=== PATIENT | female | born 1985 | race Caucasian/White ===

== ENCOUNTER 2016-09-24 17:49 | Emergency (ER) | payer BC ==
[~2016-09-24] VITALS: Ht 157.5 cm; Wt 55.5 kg
[~2016-09-24 17:49] MED LIST: BCPILLS PO; MISCCAP80 PO; PRENTAB26 PO
[2016-09-24 17:58] VITALS: TEMP 36.6; Ht 157.5 cm; Wt 55.5 kg
[2016-09-24] MEDS ORDERED: ONDANSETRON INJ 2 MG/ML 2 ML VIAL IV STA (18:34)
[2016-09-24] MEDS ORDERED: SODIUM CHLORIDE 0.9% 1000ML 1,000 ML IV STA (18:34)
[2016-09-24] MEDS ORDERED: HYDROmorphone INJ 1 MG/ML SYR IV STA (18:34)
[2016-09-24 19:04] LABS: BASO % 0.2 %; BASO ABS # 0.02 K/uL (0-0.2); COMPLETE YES; EOS % 0.8 %; HEMATOCRIT 45.2 % (37-47); IG% 0.2 %; LYMPH % 16.1 %; LYMPH ABS # 1.53 K/uL (1.2-3.4); MEAN CELL VOLUME 86.8 fL (80-100); MEAN CORPUSCULAR HEMOGLOBIN 30.7 pg (25-34); MEAN CORPUSCULAR HGB CONC 35.4 g/dl (32-36); MEAN PLATELET VOLUME 10.2 fL (7.4-10.4); MONO % 7.3 %; NEUT % 75.4 %; PLATELET COUNT 268 K/uL (130-400); RED BLOOD COUNT 5.21 M/uL (4.2-5.4); WHITE BLOOD COUNT 9.48 K/uL (4.8-10.8)
[2016-09-24 19:12] LABS: URINE APPEARANCE CLEAR (CLEAR); URINE BILIRUBIN NEG (NEG); URINE COLOR YELLOW; URINE EPITHELIAL CELL AUTO >30 /lpf (0-5); URINE NITRITE NEG (NEG); URINE PH >= 9.0 (4.5-7.5); URINE SPECIFIC GRAVITY 1.018 (1.000-1.030); UROBILINOGEN NEG (NEG)
[2016-09-24 19:14] LABS: MANUAL MICROSCOPIC REQUIRED? NO; REVIEW REQ? NO
[2016-09-24 19:23] LABS: ALT/SGPT 22 U/L (12-78); AST/SGOT 10 U/L (15-37); BLOOD UREA NITROGEN 10 mg/dl (7-18); BUN/CREATININE RATIO 13.3 (10-20); CALCIUM 9.7 mg/dl (8.5-10.1); CARBON DIOXIDE 27 mmol/L (21-32); CHLORIDE 108 mmol/L (98-107); CREATININE 0.77 mg/dl (0.60-1.20); GLUCOSE 89 mg/dl (70-99); SODIUM 143 mmol/L (136-145)
--- NOTE | 2016-09-24 19:31 | DIAGNOSTIC IMAGING REPORT ---
CT OF THE ABDOMEN AND PELVIS WITHOUT CONTRAST, STONE PROTOCOL CLINICAL HISTORY: Flank pain. Evaluate for stone. COMPARISON STUDY: CT of the abdomen and pelvis November 12, 2012 and renal ultrasound March 14, 2016. TECHNIQUE: Helical axial images of the abdomen and pelvis were obtained without IV or oral contrast according to renal stone protocol. FINDINGS: Lung bases are clear. Multiple right renal calculi measure up to 6 mm. There are several punctate left renal calculi. There is no hydronephrosis or hydroureter. There are no ureteral calculi. Evaluation of the remainder of the abdomen and pelvis is suboptimal on this unenhanced exam. The liver, spleen, adrenal glands and pancreas are normal. There is no evidence for a bowel obstruction. The appendix is normal. There are few prominent loops of fluid-filled small bowel within the right lower quadrant without transition point. There is no ascites. There is no lymphadenopathy or abscess. No suspicious skeletal lesions are identified. IMPRESSION: 1. Bilateral nephrolithiasis. No ureteral calculi or hydronephrosis. 2. Normal appendix. 3. No acute process within the abdomen or pelvis on unenhanced exam. A few prominent loops of small bowel within the right lower quadrant without convincing evidence for a small bowel obstruction. Electronically signed by: Lai Constantino M.D. 09/24/2016 7:30 PM Dictated Date/Time: 09/24/2016 7:21 PM
[2016-09-24 19:33] LABS: ALKALINE PHOSPHATASE 117 U/L (45-117)
[2016-09-24] MEDS ORDERED: OXYCODONE IR HOME PACK PO ONE (20:00)
[2016-09-24 20:17] VITALS: BP 119/81; PULSE 72; O2SAT 98
--- NOTE | 2016-09-25 01:00 | EMERGENCY ROOM VISIT NOTE ---
History Report prepared by Roxanne: David Catalan Under the Supervision of: Dr. Armand Morales M.D. First contact with patient: 18:23 Chief Complaint: ABDOMINAL PAIN Stated Complaint: COLD CHILLS, INTENSE STOMACH PAIN Nursing Triage Summary: abd pain and cramping. "Worse than labor contractions, no relief" Diarrhea. History od kidney stones. Denies urinary trouble. Nausea, no vomiting. History of Present Illness The patient is a 30 year old female who presents to the Emergency Room with complaints of constant, sharp, lower abdominal pain beginning this morning. She currently rates her discomfort an 8/10 in severity. The patient states that her pain began this morning when she was using the restroom. She reports that it radiates to her sides, but not her back. The patient notes that it feels like she is having labor contractions that do not stop. She states that she has had diarrhea and chills. The patient denies fever, vomiting, urinary symptoms, vaginal discharge, vaginal bleeding, blood in her urine or stool or melena. She reports that she has a history of kidney stones. The patient notes that she passed a kidney stone a year ago, and her pain was a lot lower. She states that her PCP thought it was a UTI. Source of History: patient Onset: this morning Position: abdomen (lower) Symptom Intensity: 8/10 Quality: sharp Timing: constant Modifying Factors (Relieving): other (none) Associated Symptoms: + chills, + diarrhea, No fevers, No vomiting, No urinary symptoms Review of Systems See HPI for pertinent positives & negatives. A total of 10 systems reviewed and were otherwise negative. Past Medical & Surgical Medical Problems: (1) No Known Active Medical Problems (2) Post-dates Family History Patient reports no known family medical history. Social History Smoking Status: Never Smoker Drug Use: none Marital Status: Housing Status: lives with family Occupation Status: employed Current/Historical Medications No Active Prescriptions or Reported Meds Allergies Coded Allergies: No Known Allergies (Unverified , 09/24/16) Physical Exam Vital Signs Date Time Temp Pulse Resp B/P (MAP) Pulse Ox O2 Delivery O2 Flow Rate FiO2 09/24/16 20:17 72 18 119/81 98 09/24/16 17:58 36.6 97 19 133/86 97 Room Air Physical Exam Constitutional: Vital signs reviewed. Crying and in significant pain Eyes: Pupils are equal round reactive to light. Conjunctiva are noninjected. ENT: Pharynx is clear without erythema or exudate. Mucous membranes are moist. Neck supple without meningeal signs. Respiratory: Clear to auscultation bilaterally. Breath sounds are equal bilaterally. Cardiovascular: Regular rate and rhythm. No rubs or gallops. GI: Soft, nondistended and nontender. Bowel sounds are present. Musculoskeletal: No peripheral edema. No lower extremity tenderness. No CVA tenderness. Integumentary: No cyanosis. Neurological: The patient is awake and alert. No focal deficits. Psychiatric: Anxious. Tearful. Medical Decision & Procedures ER Provider Diagnostic Interpretation: CT results as stated below per my review and radiologist interpretation. CT OF THE ABDOMEN AND PELVIS WITHOUT CONTRAST, STONE PROTOCOL CLINICAL HISTORY: Flank pain. Evaluate for stone. COMPARISON STUDY: CT of the abdomen and pelvis November 12, 2012 and renal ultrasound March 14, 2016. TECHNIQUE: Helical axial images of the abdomen and pelvis were obtained without IV or oral contrast according to renal stone protocol. FINDINGS: Lung bases are clear. Multiple right renal calculi measure up to 6 mm. There are several punctate left renal calculi. There is no hydronephrosis or hydroureter. There are no ureteral calculi. Evaluation of the remainder of the abdomen and pelvis is suboptimal on this unenhanced exam. The liver, spleen, adrenal glands and pancreas are normal. There is no evidence for a bowel obstruction. The appendix is normal. There are few prominent loops of fluid-filled small bowel within the right lower quadrant without transition point. There is no ascites. There is no lymphadenopathy or abscess. No suspicious skeletal lesions are identified. IMPRESSION: 1. Bilateral nephrolithiasis. No ureteral calculi or hydronephrosis. 2. Normal appendix. 3. No acute process within the abdomen or pelvis on unenhanced exam. A few prominent loops of small bowel within the right lower quadrant without convincing evidence for a small bowel obstruction. Electronically signed by: Lai Constantino M.D. 09/24/2016 7:30 PM Dictated Date/Time: 09/24/2016 7:21 PM Laboratory Results 09/24/16 18:55 Red Blood Count 5.21, Mean Corpuscular Volume 86.8, Mean Corpuscular Hemoglobin 30.7, Mean Corpuscular Hemoglobin Concent 35.4, Mean Platelet Volume 10.2, Neutrophils (%) (Auto) 75.4, Lymphocytes (%) (Auto) 16.1, Monocytes (%) (Auto) 7.3, Eosinophils (%) (Auto) 0.8, Basophils (%) (Auto) 0.2, Neutrophils # (Auto) 7.14, Lymphocytes # (Auto) 1.53, Monocytes # (Auto) 0.69, Eosinophils # (Auto) 0.08, Basophils # (Auto) 0.02 09/24/16 18:55 Test 09/24/16 18:55 White Blood Count 9.48 K/uL (4.8-10.8) Red Blood Count 5.21 M/uL (4.2-5.4) Hemoglobin 16.0 g/dL (12.0-16.0) Hematocrit 45.2 % (37-47) Mean Corpuscular Volume 86.8 fL (80-100) Mean Corpuscular Hemoglobin 30.7 pg (25-34) Mean Corpuscular Hemoglobin Concent 35.4 g/dl (32-36) Platelet Count 268 K/uL (130-400) Mean Platelet Volume 10.2 fL (7.4-10.4) Neutrophils (%) (Auto) 75.4 % Lymphocytes (%) (Auto) 16.1 % Monocytes (%) (Auto) 7.3 % Eosinophils (%) (Auto) 0.8 % Basophils (%) (Auto) 0.2 % Neutrophils # (Auto) 7.14 K/uL (1.4-6.5) Lymphocytes # (Auto) 1.53 K/uL (1.2-3.4) Monocytes # (Auto) 0.69 K/uL (0.11-0.59) Eosinophils # (Auto) 0.08 K/uL (0-0.5) Basophils # (Auto) 0.02 K/uL (0-0.2) RDW Standard Deviation 40.7 fL (36.4-46.3) RDW Coefficient of Variation 12.8 % (11.5-14.5) Immature Granulocyte % (Auto) 0.2 % Immature Granulocyte # (Auto) 0.02 K/uL (0.00-0.02) Urine Color YELLOW Urine Appearance CLEAR (CLEAR) Urine pH >= 9.0 (4.5-7.5) Urine Specific [place] 1.018 (1.000-1.030) Urine Protein NEG (NEG) Urine Glucose (UA) NEG (NEG) Urine Ketones NEG (NEG) Urine Occult Blood TRACE (NEG) Urine Nitrite NEG (NEG) Urine Bilirubin NEG (NEG) Urine Urobilinogen NEG (NEG) Urine Leukocyte Esterase NEG (NEG) Urine WBC (Auto) 1-5 /hpf (0-5) Urine RBC (Auto) 5-10 /hpf (0-4) Urine Hyaline Casts (Auto) 1-5 /lpf (0-5) Urine Epithelial Cells (Auto) >30 /lpf (0-5) Urine Bacteria (Auto) NEG (NEG) Urine Test NEG (NEG) Anion Gap 8.0 mmol/L (3-11) Est Creatinine Clear Calc Drug Dose 83.0 ml/min Estimated GFR () 118.4 Estimated GFR (Non- 102.2 BUN/Creatinine Ratio 13.3 (10-20) Calcium Level 9.7 mg/dl (8.5-10.1) Total Bilirubin 0.3 mg/dl (0.2-1) Direct Bilirubin < 0.1 mg/dl (0-0.2) Aspartate Amino Transf (AST/SGOT) 10 U/L (15-37) Alanine Aminotransferase (ALT/SGPT) 22 U/L (12-78) Alkaline Phosphatase 117 U/L (45-117) Total Protein 8.5 gm/dl (6.4-8.2) Albumin 4.4 gm/dl (3.4-5.0) Lipase 169 U/L (73-393) Laboratory results as reviewed by me. Medications Administered Medications (Trade) Dose Ordered Sig/Franchesca Route Start Time Stop Time Status Last Admin Dose Admin Ondansetron HCl (Zofran Inj) 4 mg NOW STAT IV 09/24/16 18:34 09/24/16 18:37 DC 09/24/16 18:51 4 MG Hydromorphone HCl (Dilaudid Inj) 0.5 mg NOW STAT IV 09/24/16 18:34 09/24/16 18:37 DC 09/24/16 18:51 0.5 MG Sodium Chloride 1,000 ml @ 999 mls/hr Q1H1M STAT IV 09/24/16 18:34 09/24/16 19:34 DC 09/24/16 18:51 999 MLS/HR Oxycodone HCl (Roxicodone Immediate Rel 5MG Home Pack) 1 homepack UD ONCE PO 09/24/16 20:00 09/24/16 20:01 DC 09/24/16 20:13 1 HOMEPACK ED Course 1830: The patient was evaluated in room C11A. A complete history and physical exam was performed. 1833: Ordered Sodium Chloride 1000 ml @ 999 mls/hr IV, Dilaudid Inj 0.5mg IV, Zofran Inj 4mg IV. 1945: Upon reevaluation, the patient appeared to have improvement of her symptoms. I discussed tonight's findings with her. She verbalized agreement of the treatment plan. She will follow up with her PCP and will not breast feed while on medication. The patient will be discharged home when she receives her medication. 1999: Ordered Oxycodone HCl 1 homepack PO Medical Decision This is a 30-year-old female presents with abdominal pain. Differential diagnosis includes renal colic, obstructive uropathy, UTI, pancreatitis, cholecystitis, bowel obstruction, colitis. I did perform a limited focused review of portions of the patient's old chart on the electronic medical record. The patient had a CT scan in 2012 which showed a bilateral kidney stone. Medication Reconciliation: I attest that I have personally reviewed the patient' s current medication list. Blood Pressure Screening: Patient was found to have a slightly elevated blood pressure due to circumstances. I do not believe that the patient requires hypertension monitoring. I did evaluate the patient as noted above. The patient is presenting with significant abdominal pain. She has a history of kidney stones. IV access was established. I did treat her with IV Dilaudid and Zofran. She was also given normal saline IV. I did order and personally review the patient's urine analysis as described above. Urine test is negative. I did order and review the patient's blood work as noted in the electronic medical record. Her white blood cell count is not elevated. LFTs and electrolytes are unremarkable. I did order a CT of the abdomen and pelvis. I did review the images myself as well as the radiology report as described above. She has no evidence of ureterolithiasis. She does have nephrolithiasis. It seems possible that she may have passed a stone given her hematuria and prior history of kidney stones. She does have some dilated small bowel loops which is likely secondary to enteritis given her diarrhea. I did discuss the test results with the patient. She is feeling better at this time. She was given a home pack of oxycodone for any persistent pain. She was advised follow up very closely with her doctor for further evaluation. She was advised not to breast feed for 24 hours after using any narcotic pain meds. She was given return instructions as outlined below and discharged in good condition. Impression Primary Impression: Abdominal pain, acute, generalized Additional Impressions: Enteritis Nephrolithiasis Scribe Attestation The scribe's documentation has been prepared under my direct and personally reviewed by me in its entirety. I confirm that the note above accurately reflects all work, treatment, procedures, and medical decision making performed by me. Departure Information Dispostion Home / Self-Care Prescriptions No Active Prescriptions or Reported Meds Referrals Marj Fiore M.D. Forms Call Back Authorization, HOME CARE DOCUMENTATION FORM, IMPORTANT VISIT INFORMATION Patient Instructions Abdominal Pain - [facility], [facility] Additional Instructions You have been examined and treated today on an emergency basis only. This is not a substitute for, or an effort to provide, complete comprehensive medical care. It is impossible to recognize and treat all injuries or illnesses in a single emergency department visit. It is therefore important that you follow up closely with your physician. Call as soon as possible for an appointment. Return for worsening symptoms or if you develop fever, vomiting, or any other concerning symptoms. Problem Qualifiers
[2016-09-26] MEDS ORDERED: MRLP17X PO (14:02)
== END 2016-09-24 20:17 | disposition home or self-care (01) ==
LOC: C.EDB 17:51 → C.EDC 20:17
DX: R10.0 Acute abdomen (principal); K52.9 Noninfective gastroenteritis and colitis, unspecified; N20.0 Calculus of kidney

== ENCOUNTER 2016-09-25 08:19 | Observation (INO) | payer BC ==
[~2016-09-25] VITALS: Ht 157.5 cm; Wt 56.7 kg
[2016-09-25] MEDS ORDERED: ONDANSETRON INJ 2 MG/ML 2 ML VIAL IV STA (08:46)
[2016-09-25] MEDS ORDERED: SODIUM CHLORIDE 0.9% 1000ML 1,000 ML IV STA (08:46)
[2016-09-25] MEDS ORDERED: MoRPHine SULFATE 4 MG/ML 1 ML CARP\\VIAL IV STA (08:46)
[2016-09-25 08:57] LABS: URINE APPEARANCE CLEAR (CLEAR); URINE BILIRUBIN NEG (NEG); URINE COLOR YELLOW; URINE NITRITE NEG (NEG); URINE SPECIFIC GRAVITY 1.004 (1.000-1.030); UROBILINOGEN NEG (NEG); ZZUR CULT IF INDIC CLEAN CATCH NO
--- NOTE | 2016-09-25 09:00 | EMERGENCY ROOM VISIT NOTE ---
History First contact with patient: 08:31 Chief Complaint: DEHYDRATION Stated Complaint: COLD CHILLS,BACK/SHOULDER/ABD. PAIN, DEHYDRATED Nursing Triage Summary: triage note: pt reports she was seen in ed yesterday for same. pt reports "i feel like i have to poop but i can't and i am having pain on the right side of my back." pt reports "i have a cluster of kidney stones they say." History of Present Illness The patient is a 30 year old female who presents to the Emergency Room with complaints of abdominal pain. The patient states that she has had diffuse and more severe upper abdominal pain. She states that she had diarrhea yesterday but today feels as though she needs to have a bowel movement but she cannot. She was seen in the emergency department yesterday for similar symptoms. She had a noncontrasted CT scan. The patient states that the pain has worsened. The pain is in the upper abdomen and radiates to the right shoulder. She rates her discomfort a 6/10. She reports nausea. She denies any fevers. She denies any vomiting. She denies any hematemesis, hematochezia or melena. She denies any urinary symptoms. She denies any vaginal bleeding or discharge. The patient has had a in the past. She had a vaginal delivery approximately 11 months ago and she is currently breast-feeding. She also went kayaking approximately 1.5 weeks ago. Review of Systems A 10 system review of systems was completed with positives and pertinent negatives listed in the HPI. Past Medical/Surgical History Medical Problems: (1) No Known Active Medical Problems (2) Post-dates Family History Patient reports no known family medical history. Social History Smoking Status: Never Smoker Drug Use: none Marital Status: Housing Status: lives with family Occupation Status: employed Current/Historical Medications No Active Prescriptions or Reported Meds Allergies Coded Allergies: No Known Allergies (Unverified , 09/25/16) Physical Exam Vital Signs Date Time Temp Pulse Resp B/P (MAP) Pulse Ox O2 Delivery O2 Flow Rate FiO2 09/25/16 13:24 75 09/25/16 12:55 69 18 109/79 100 Room Air 09/25/16 10:08 78 19 122/78 98 09/25/16 08:21 36.8 98 20 141/99 98 Room Air Physical Exam VITALS: Vitals are noted on the nurse's note and reviewed by myself. Vital signs stable. The patient is afebrile. GENERAL: This is a 30-year-old female, in no acute distress, nondiaphoretic, well-developed well-nourished. SKIN: The skin was without rashes, erythema, edema, or bruising. There is no tenting of the skin. Capillary reflex less than 2 seconds. HEAD: Normocephalic atraumatic. EARS: The external ears are normal in appearance. EYES: Pupils equal round and reactive to light and accommodation. Conjunctivae without injection, sclerae without icterus. Extraocular movements intact. NOSE: Patent, turbinates without inflammation or discharge. MOUTH: Mucous membranes moist. Tonsils are not enlarged. Pharynx without erythema or exudate. Uvula midline. Airway patent. Tongue does not deviate. NECK: Supple without nuchal rigidity. No lymphadenopathy. No thyromegaly. Cervical spine is nontender. No JVD. HEART: Regular rate and rhythm without murmurs gallops or rubs. LUNGS: Clear to auscultation bilaterally without wheezes, rales or rhonchi. No retractions or accessory muscle use. ABDOMEN: Positive bowel sounds x 4, hyperactive. Soft, moderate diffuse tenderness, without masses or organomegaly. Yoon sign negative. MUSCULOSKELETAL: No muscle atrophy, erythema, or edema noted. Full range of motion in all extremities. Normal gait. Strength 5/5 throughout. NEURO: Patient was alert and oriented to person place and time. No focal neurological deficits. Medical Decision & Procedures ER Provider Diagnostic Interpretation: [~ rep ct add3]] BILIARY ULTRASOUND CLINICAL HISTORY: Right upper quadrant abdominal pain COMPARISON STUDY: No previous studies for comparison. FINDINGS: The liver appears sonographically normal. The gallbladder appears sonographically normal. The pancreas appears sonographically normal. There is no ductal dilatation. The common bile duct measures 3 mm. There is no right-sided hydronephrosis. There are 2 small echogenic foci within the right kidney, likely representing calculi. IMPRESSION: 1. Ultrasonographically normal liver, pancreas, and gallbladder 2. No ductal dilatation 3. Right-sided nephrolithiasis CHEST ONE VIEW PORTABLE CLINICAL HISTORY: abdominal pain pain COMPARISON STUDY: 03/14/2016 FINDINGS: The bones soft tissues and hemidiaphragms are normal. The cardiomediastinal silhouette is normal. The lungs are clear. The pulmonary vasculature is normal. IMPRESSION: Negative chest. KUB CLINICAL HISTORY: abdominal pain COMPARISON STUDY: CT scan dated 09/24/2016 FINDINGS: There are minimally dilated left mid abdominal small bowel loops measuring up to 3.4 cm in diameter. There is scattered stool within the colon. The renal shadows are partially secured by overlying bowel gas and fecal material. There is a 4 mm upper pole right renal calcification consistent with a calculus. IMPRESSION: 1. Right-sided nephrolithiasis 2. Minimally dilated left upper quadrant small bowel loops Laboratory Results 09/25/16 08:50 Red Blood Count 4.80, Mean Corpuscular Volume 86.7, Mean Corpuscular Hemoglobin 29.0, Mean Corpuscular Hemoglobin Concent 33.4, Mean Platelet Volume 9.7, Neutrophils (%) (Auto) 67.3, Lymphocytes (%) (Auto) 21.0, Monocytes (%) (Auto) 10.2, Eosinophils (%) (Auto) 0.9, Basophils (%) (Auto) 0.4, Neutrophils # (Auto ) 3.82, Lymphocytes # (Auto) 1.19, Monocytes # (Auto) 0.58, Eosinophils # (Auto ) 0.05, Basophils # (Auto) 0.02 09/25/16 08:50 Test 09/25/16 08:30 09/25/16 08:50 09/25/16 09:00 Urine Color YELLOW Urine Appearance CLEAR (CLEAR) Urine pH 8.0 (4.5-7.5) Urine Specific [place] 1.004 (1.000-1.030) Urine Protein NEG (NEG) Urine Glucose (UA) NEG (NEG) Urine Ketones NEG (NEG) Urine Occult Blood NEG (NEG) Urine Nitrite NEG (NEG) Urine Bilirubin NEG (NEG) Urine Urobilinogen NEG (NEG) Urine Leukocyte Esterase NEG (NEG) Urine Test NEG (NEG) White Blood Count 5.67 K/uL (4.8-10.8) Red Blood Count 4.80 M/uL (4.2-5.4) Hemoglobin 13.9 g/dL (12.0-16.0) Hematocrit 41.6 % (37-47) Mean Corpuscular Volume 86.7 fL (80-100) Mean Corpuscular Hemoglobin 29.0 pg (25-34) Mean Corpuscular Hemoglobin Concent 33.4 g/dl (32-36) Platelet Count 222 K/uL (130-400) Mean Platelet Volume 9.7 fL (7.4-10.4) Neutrophils (%) (Auto) 67.3 % Lymphocytes (%) (Auto) 21.0 % Monocytes (%) (Auto) 10.2 % Eosinophils (%) (Auto) 0.9 % Basophils (%) (Auto) 0.4 % Neutrophils # (Auto) 3.82 K/uL (1.4-6.5) Lymphocytes # (Auto) 1.19 K/uL (1.2-3.4) Monocytes # (Auto) 0.58 K/uL (0.11-0.59) Eosinophils # (Auto) 0.05 K/uL (0-0.5) Basophils # (Auto) 0.02 K/uL (0-0.2) RDW Standard Deviation 40.7 fL (36.4-46.3) RDW Coefficient of Variation 12.7 % (11.5-14.5) Immature Granulocyte % (Auto) 0.2 % Immature Granulocyte # (Auto) 0.01 K/uL (0.00-0.02) Anion Gap 10.0 mmol/L (3-11) Est Creatinine Clear Calc Drug Dose 95.4 ml/min Estimated GFR () 134.8 Estimated GFR (Non- 116.3 BUN/Creatinine Ratio 9.3 (10-20) Calcium Level 8.6 mg/dl (8.5-10.1) Total Bilirubin 0.5 mg/dl (0.2-1) Aspartate Amino Transf (AST/SGOT) 11 U/L (15-37) Alanine Aminotransferase (ALT/SGPT) 18 U/L (12-78) Alkaline Phosphatase 95 U/L (45-117) Total Protein 7.2 gm/dl (6.4-8.2) Albumin 3.8 gm/dl (3.4-5.0) Globulin 3.4 gm/dl (2.5-4.0) Albumin/Globulin Ratio 1.1 (0.9-2) Lipase 131 U/L (73-393) Lactic Acid Level 1.2 mmol/L (0.4-2.0) Medications Administered Medications (Trade) Dose Ordered Sig/Franchesca Route Start Time Stop Time Status Last Admin Dose Admin Morphine Sulfate (MoRPHine SULFATE INJ) 4 mg NOW STAT IV 09/25/16 08:46 09/25/16 08:48 DC 09/25/16 08:46 4 MG Ondansetron HCl (Zofran Inj) 4 mg NOW STAT IV 09/25/16 08:46 09/25/16 08:48 DC 09/25/16 08:46 4 MG Sodium Chloride 1,000 ml @ 999 mls/hr Q1H1M STAT IV 09/25/16 08:46 09/25/16 09:46 DC 09/25/16 08:46 999 MLS/HR Miscellaneous (Soap Suds Enema) 1 ea ONE STAT MT 09/25/16 11:04 09/25/16 11:06 DC 09/25/16 11:04 1 EA Morphine Sulfate (MoRPHine SULFATE INJ) 2 mg NOW STAT IV 09/25/16 13:01 09/25/16 13:02 DC 09/25/16 13:01 2 MG ED Course The patient was seen and examined. Previous visits were reviewed. The patient does not have a fever or leukocytosis. She does not have any significant electrolyte abnormality. Lactic acid was not elevated. Lipase was not elevated. Urinalysis is negative for hematuria, ketones or urinary tract infection. Urine test was negative. Ultrasound of the gallbladder was negative Chest x-ray was negative for free air or acute abnormality KUB was negative for obstruction. There is a moderate amount of stool in the right colon. There are dilated loops of bowel in the left upper quadrant. The patient was hydrated with normal saline She was initially given 4 mg IV morphine and 4 mg IV Zofran She was given a soapsuds enema with only minimal return She was given additional 2 mg IV morphine The patient presents to the emergency department with intractable abdominal pain. She was seen here yesterday and had a negative noncontrasted CT. Her pain has persisted and even worsened with radiation to the right shoulder. Gallbladder ultrasound was negative. X-rays did not reveal any obvious abnormality. The patient does have increased fecal load particularly on the right abdomen. A soapsuds enema did not produce results and did not alleviate her pain. The patient had diarrhea yesterday but the diarrhea has stopped. This could potentially represent an infectious colitis or diarrhea. Could be inflammatory in nature. I discussed repeating a CT scan of the abdomen and pelvis with IV and oral contrast. I did discuss the risks, benefits and alternatives. The patient and her would like to defer a CT at this time. Despite the above treatment, the patient complains of persistent and severe discomfort. She is concerned that the pain would return and she would come back to the emergency department. I discussed the case with the [facility] service and they will evaluate the patient. The case was discussed with Dr. Villatoro who agrees with the assessment and treatment plan. Medical Decision DIFFERENTIAL DIAGNOSIS: Hepatitis, cholecystitis, cholangitis, biliary colic, pancreatitis, pneumonia, subdiaphragmatic abscess, appendicitis, inguinal hernia , nephrolithiasis, inflammatory bowel disease, mesenteric adenitis, peptic ulcer disease, GERD, gastritis, pancreatitis, myocardial infarction, pericarditis, ruptured aortic aneurysm, appendicitis, gastroenteritis, bowel obstruction, splenic infarct, diverticulitis, mesenteric ischemia, metabolic, peritonitis, among others. Impression Primary Impression: Intractable abdominal pain Additional Impression: Nausea Departure Information Dispostion Admitted as an inpatient Condition GOOD Prescriptions No Active Prescriptions or Reported Meds Referrals Yojana Rehman MD (PCP) Patient Instructions My [facility] [address] Problem Qualifiers
--- NOTE | 2016-09-25 09:02 | DIAGNOSTIC IMAGING REPORT ---
CHEST ONE VIEW PORTABLE CLINICAL HISTORY: abdominal pain pain COMPARISON STUDY: 03/14/2016 FINDINGS: The bones soft tissues and hemidiaphragms are normal. The cardiomediastinal silhouette is normal. The lungs are clear. The pulmonary vasculature is normal. IMPRESSION: Negative chest. Electronically signed by: Con Flores M.D. 09/25/2016 9:01 AM Dictated Date/Time: 09/25/2016 9:01 AM
[2016-09-25 09:03] LABS: MANUAL MICROSCOPIC REQUIRED? NO; REVIEW REQ? NO
[2016-09-25 09:09] LABS: BASO % 0.4 %; BASO ABS # 0.02 K/uL (0-0.2); COMPLETE YES; EOS % 0.9 %; HEMATOCRIT 41.6 % (37-47); IG% 0.2 %; LYMPH ABS # 1.19 K/uL (1.2-3.4); MEAN CELL VOLUME 86.7 fL (80-100); MEAN CORPUSCULAR HGB CONC 33.4 g/dl (32-36); MEAN PLATELET VOLUME 9.7 fL (7.4-10.4); MONO % 10.2 %; NEUT % 67.3 %; PLATELET COUNT 222 K/uL (130-400); WHITE BLOOD COUNT 5.67 K/uL (4.8-10.8)
[2016-09-25 09:28] LABS: BUN/CREATININE RATIO 9.3 (10-20); CREATININE 0.67 mg/dl (0.60-1.20); POTASSIUM 3.7 mmol/L (3.5-5.1)
[2016-09-25 09:30] LABS: ALB/GLOB RATIO 1.1 (0.9-2)
[2016-09-25 09:37] LABS: CALCIUM 8.6 mg/dl (8.5-10.1)
--- NOTE | 2016-09-25 09:58 | DIAGNOSTIC IMAGING REPORT ---
BILIARY ULTRASOUND CLINICAL HISTORY: Right upper quadrant abdominal pain COMPARISON STUDY: No previous studies for comparison. FINDINGS: The liver appears sonographically normal. The gallbladder appears sonographically normal. The pancreas appears sonographically normal. There is no ductal dilatation. The common bile duct measures 3 mm. There is no right-sided hydronephrosis. There are 2 small echogenic foci within the right kidney, likely representing calculi. IMPRESSION: 1. Ultrasonographically normal liver, pancreas, and gallbladder 2. No ductal dilatation 3. Right-sided nephrolithiasis Electronically signed by: Jose G Singh M.D. 09/25/2016 9:57 AM Dictated Date/Time: 09/25/2016 9:55 AM
--- NOTE | 2016-09-25 10:38 | DIAGNOSTIC IMAGING REPORT ---
KUB CLINICAL HISTORY: abdominal pain COMPARISON STUDY: CT scan dated 09/24/2016 FINDINGS: There are minimally dilated left mid abdominal small bowel loops measuring up to 3.4 cm in diameter. There is scattered stool within the colon. The renal shadows are partially secured by overlying bowel gas and fecal material. There is a 4 mm upper pole right renal calcification consistent with a calculus. IMPRESSION: 1. Right-sided nephrolithiasis 2. Minimally dilated left upper quadrant small bowel loops Electronically signed by: Jose G Singh M.D. 09/25/2016 10:37 AM Dictated Date/Time: 09/25/2016 10:35 AM
[2016-09-25] MEDS ORDERED: SOAP SUDS ENEMA PR STA (11:04)
[2016-09-25] MEDS ORDERED: MoRPHine SULFATE 2 MG/ML CARP IV STA (13:01)
--- NOTE | 2016-09-25 13:44 | History and Physical ---
History & Physical Date & Time of Service: Sep 25, 2016 at 13:44 Chief Complaint: abdominal pain, nausea, chills . Primary Care Physician: History of Present Illness Source: patient, family, clinic records, hospital records 30-year-old female followed by Dr. Marj Fiore. History of nephrolithiasis, status post lithotripsy stents. Otherwise, she enjoys good health. Early yesterday morning she developed abdominal pain. Pain described as lower abdominal pain that radiated to her back. The pain was intense and constant. She noted some nausea and loose stools. No dysuria or hematuria. Experienced chills, no fever. Came to the ED for evaluation. UA showed microscopic hematuria. CT of abdomen and pelvis showed bilateral physis, but no ureteral stones and no apparent acute intra-abdominal pathology. Patient received IV fluids, hydromorphone, and ondansetron with improvement of her symptoms. She was discharged to home. She returned to the ED this afternoon around 1:30 because of persistent abdominal pain, more diffuse than yesterday. Persistent nausea, no vomiting. Still experiencing some fecal urgency and loose stools. No melena or hematochezia prior to ED visit, but she had mild rectal bleeding after enema was administered. No dysuria or gross hematuria. Received IV fluids, ondansetron, morphine with some relief, but still uncomfortable and unable to return home. Youngest child is 11 months old and still breast-feeding. Urine test in ED negative. . Past Medical/Surgical History Medical Problems: (1) Nephrolithiasis Status: Chronic Surgical Problems: (1) Status post delivery Status: Chronic . Family History Mother- DM, heart disease, hypertension, aortic valve replacement. Father- diabetes . Social History Smoking Status: Never Smoker Alcohol Use: none Drug Use: none Marital Status: Housing status: lives with significant other Occupational Status: employed Immunizations History of Influenza Vaccine: N/A History of Tetanus Vaccine?: Yes History of Pneumococcal: No History of Hepatitis B Vaccine: Yes Allergies Coded Allergies: No Known Allergies (Unverified , 09/25/16) Home Medications No Active Prescriptions or Reported Meds Review of Systems As noted above. . Physical Exam Vital Signs Date Time Temp Pulse Resp B/P (MAP) Pulse Ox O2 Delivery O2 Flow Rate FiO2 09/25/16 13:24 75 09/25/16 12:55 69 18 109/79 100 Room Air 09/25/16 10:08 78 19 122/78 98 09/25/16 08:21 36.8 98 20 141/99 98 Room Air General Appearance: + mild distress Head: normocephalic, atraumatic Eyes: normal inspection, PERRL, EOMI, sclerae normal ENT: normal ENT inspection, hearing grossly normal Neck: supple, no adenopathy, thyroid normal, no JVD Respiratory/Chest: lungs clear, normal breath sounds, no respiratory distress, no accessory muscle use Cardiovascular: regular rate, rhythm, no edema, no murmur Abdomen/GI: + pertinent finding (slightly distended, hyperactive bowel sounds, soft, diffuse moderate tenderness without rebound, no palpable masses or organomegaly) Extremities/Musculoskelatal: normal inspection, no calf tenderness Neurologic/Psych: oriented x 3 Skin: normal color, warm/dry, no rash Lymphatic: no adenopathy (cervical) Diagnostics Laboratory Results Results Past 24 Hours Test 09/25/16 08:30 09/25/16 08:50 09/25/16 09:00 Range/Units Urine Color YELLOW Urine Appearance CLEAR CLEAR Urine pH 8.0 4.5-7.5 Urine Specific [place] 1.004 1.000-1.030 Urine Protein NEG NEG Urine Glucose (UA) NEG NEG Urine Ketones NEG NEG Urine Occult Blood NEG NEG Urine Nitrite NEG NEG Urine Bilirubin NEG NEG Urine Urobilinogen NEG NEG Urine Leukocyte Esterase NEG NEG Urine Test NEG NEG White Blood Count 5.67 4.8-10.8 K/uL Red Blood Count 4.80 4.2-5.4 M/uL Hemoglobin 13.9 12.0-16.0 g/dL Hematocrit 41.6 37-47 % Mean Corpuscular Volume 86.7 80-100 fL Mean Corpuscular Hemoglobin 29.0 25-34 pg Mean Corpuscular Hemoglobin Concent 33.4 32-36 g/dl Platelet Count 222 130-400 K/uL Mean Platelet Volume 9.7 7.4-10.4 fL Neutrophils (%) (Auto) 67.3 % Lymphocytes (%) (Auto) 21.0 % Monocytes (%) (Auto) 10.2 % Eosinophils (%) (Auto) 0.9 % Basophils (%) (Auto) 0.4 % Neutrophils # (Auto) 3.82 1.4-6.5 K/uL Lymphocytes # (Auto) 1.19 1.2-3.4 K/uL Monocytes # (Auto) 0.58 0.11-0.59 K/uL Eosinophils # (Auto) 0.05 0-0.5 K/uL Basophils # (Auto) 0.02 0-0.2 K/uL RDW Standard Deviation 40.7 36.4-46.3 fL RDW Coefficient of Variation 12.7 11.5-14.5 % Immature Granulocyte % (Auto) 0.2 % Immature Granulocyte # (Auto) 0.01 0.00-0.02 K/uL Sodium Level 141 136-145 mmol/L Potassium Level 3.7 3.5-5.1 mmol/L Chloride Level 107 98-107 mmol/L Carbon Dioxide Level 24 21-32 mmol/L Anion Gap 10.0 3-11 mmol/L Blood Urea Nitrogen 6 7-18 mg/dl Creatinine 0.67 0.60-1.20 mg/dl Est Creatinine Clear Calc Drug Dose 95.4 ml/min Estimated GFR () 134.8 Estimated GFR (Non- 116.3 BUN/Creatinine Ratio 9.3 10-20 Random Glucose 94 70-99 mg/dl Calcium Level 8.6 8.5-10.1 mg/dl Total Bilirubin 0.5 0.2-1 mg/dl Aspartate Amino Transf (AST/SGOT) 11 15-37 U/L Alanine Aminotransferase (ALT/SGPT) 18 12-78 U/L Alkaline Phosphatase 95 45-117 U/L Total Protein 7.2 6.4-8.2 gm/dl Albumin 3.8 3.4-5.0 gm/dl Globulin 3.4 2.5-4.0 gm/dl Albumin/Globulin Ratio 1.1 0.9-2 Lipase 131 73-393 U/L Lactic Acid Level 1.2 0.4-2.0 mmol/L Diagnostic Radiology CT OF THE ABDOMEN AND PELVIS WITHOUT CONTRAST, STONE PROTOCOL 09/24/16 CLINICAL HISTORY: Flank pain. Evaluate for stone. COMPARISON STUDY: CT of the abdomen and pelvis November 12, 2012 and renal ultrasound March 14, 2016. TECHNIQUE: Helical axial images of the abdomen and pelvis were obtained without IV or oral contrast according to renal stone protocol. FINDINGS: Lung bases are clear. Multiple right renal calculi measure up to 6 mm. There are several punctate left renal calculi. There is no hydronephrosis or hydroureter. There are no ureteral calculi. Evaluation of the remainder of the abdomen and pelvis is suboptimal on this unenhanced exam. The liver, spleen, adrenal glands and pancreas are normal. There is no evidence for a bowel obstruction. The appendix is normal. There are few prominent loops of fluid-filled small bowel within the right lower quadrant without transition point. There is no ascites. There is no lymphadenopathy or abscess. No suspicious skeletal lesions are identified. IMPRESSION: 1. Bilateral nephrolithiasis. No ureteral calculi or hydronephrosis. 2. Normal appendix. 3. No acute process within the abdomen or pelvis on unenhanced exam. A few prominent loops of small bowel within the right lower quadrant without convincing evidence for a small bowel obstruction. Electronically signed by: Lai Constantino M.D. 09/24/2016 7:30 PM BILIARY ULTRASOUND 09/25/16 CLINICAL HISTORY: Right upper quadrant abdominal pain COMPARISON STUDY: No previous studies for comparison. FINDINGS: The liver appears sonographically normal. The gallbladder appears sonographically normal. The pancreas appears sonographically normal. There is no ductal dilatation. The common bile duct measures 3 mm. There is no right-sided hydronephrosis. There are 2 small echogenic foci within the right kidney, likely representing calculi. IMPRESSION: 1. Ultrasonographically normal liver, pancreas, and gallbladder 2. No ductal dilatation 3. Right-sided nephrolithiasis Electronically signed by: Jose G Singh M.D. 09/25/2016 9:57 AM CHEST ONE VIEW PORTABLE 09/25/16 CLINICAL HISTORY: abdominal pain pain COMPARISON STUDY: 03/14/2016 FINDINGS: The bones soft tissues and hemidiaphragms are normal. The cardiomediastinal silhouette is normal. The lungs are clear. The pulmonary vasculature is normal. IMPRESSION: Negative chest. Electronically signed by: Con Flores M.D. 09/25/2016 9:01 AM KUB 09/25/16 CLINICAL HISTORY: abdominal pain COMPARISON STUDY: CT scan dated 09/24/2016 FINDINGS: There are minimally dilated left mid abdominal small bowel loops measuring up to 3.4 cm in diameter. There is scattered stool within the colon. The renal shadows are partially secured by overlying bowel gas and fecal material. There is a 4 mm upper pole right renal calcification consistent with a calculus. IMPRESSION: 1. Right-sided nephrolithiasis 2. Minimally dilated left upper quadrant small bowel loops Electronically signed by: Jose G Singh M.D. 09/25/2016 10:37 AM . Impression Assessment and Plan ABDOMINAL PAIN Severe abdominal pain over 2 days as outlined in the HPI. Etiology uncertain. History of nephrolithiasis, but no ureteral calculi noted on CT. No evidence of cholecystitis, appendicitis, diverticulitis, bowel obstruction. Presence of microscopic hematuria suggests that she may have passed a calculus. Alternatively, consider gastroenteritis. Unable to return home due to persistent symptoms. Management will consist of bowel rest, IV fluids, analgesics, antiemetics. Further evaluation/consultation as necessary if symptoms do not improve. VTE PROPHYLAXIS Very low risk for VTE. Ambulate. DISPOSITION Expected discharge to home. Internal Medicine follow-up with Dr. Marj Fiore. . VTE Prophylaxis VTE Risk Assessment Done? Y/N: Yes Risk Level: Very Low Given or contraindicated: Treatment not indicated
[2016-09-25] MEDS ORDERED: ONDANSETRON INJ 2 MG/ML 2 ML VIAL IV PRN (13:45)
[2016-09-25] MEDS ORDERED: POLYETHYLENE (MIRALAX) 17 GM PACK PO PRN (14:30)
[2016-09-25] MEDS ORDERED: MoRPHine SULFATE 2 MG/ML CARP IV PRN (14:30)
[2016-09-25] MEDS: LACTATED RINGER'S 1000ML 1,000 ML IV SCH ×2 (15:38→19:57)
[2016-09-25 16:31] VITALS: BP 117/68; PULSE 58; TEMP 36.5; O2SAT 100
[2016-09-25] MEDS ORDERED: ACETAMINOPHEN 325 MG TAB PO PRN (17:45)
[2016-09-25 18:16] VITALS: BP 117/68; PULSE 58; TEMP 36.5; Ht 157.5 cm; Wt 56.7 kg
[2016-09-25] MEDS ORDERED: IV FLUIDS COMPLETED PRN (19:15)
[2016-09-25 23:59] VITALS: O2SAT 100
[2016-09-26 00:09] VITALS: BP 105/67; PULSE 84; TEMP 36.7; O2SAT 97
[2016-09-26] MEDS: LACTATED RINGER'S 1000ML 1,000 ML IV SCH ×3 (00:18→09:40)
[2016-09-26 07:26] VITALS: BP 112/73; PULSE 73; TEMP 36.2; O2SAT 100
[2016-09-26 07:38] LABS: MEAN CELL VOLUME 87.3 fL (80-100); MEAN CORPUSCULAR HEMOGLOBIN 29.7 pg (25-34); MEAN CORPUSCULAR HGB CONC 34.1 g/dl (32-36); MEAN PLATELET VOLUME 9.7 fL (7.4-10.4); PLATELET COUNT 199 K/uL (130-400); RED BLOOD COUNT 4.24 M/uL (4.2-5.4); WHITE BLOOD COUNT 6.05 K/uL (4.8-10.8)
[2016-09-26 08:15] LABS: CREATININE 0.67 mg/dl (0.60-1.20); POTASSIUM 3.8 mmol/L (3.5-5.1)
[2016-09-26 08:19] LABS: ALB/GLOB RATIO 1.1 (0.9-2)
--- NOTE | 2016-09-26 14:00 | Progress Note ---
Medicine Progress Note Date & Time of Visit: Sep 26, 2016 at 14:00 . Subjective No fever. Abdominal pain improved; still has intermittent crampy abdominal discomfort. Had a couple loose stools in the late morning without apparent melena or hematochezia. Tolerated breakfast and lunch without nausea or vomiting. No dysuria or hematuria. . Objective Last 8 Hrs Date Time Temp Pulse Resp B/P (MAP) Pulse Ox O2 Delivery O2 Flow Rate FiO2 09/26/16 08:32 Room Air 09/26/16 07:26 36.2 73 16 112/73 (86) 100 Room Air Physical Exam: General- no distress Eyes- anicteric Lungs- clear Heart- regular Abdomen- normal bowel sounds, nondistended, soft, nontender Extremities- no pretibial edema or calf tenderness Neuro- alert . Laboratory Results: Last 24 Hours Test 09/26/16 06:46 09/26/16 12:45 White Blood Count 6.05 K/uL Red Blood Count 4.24 M/uL Hemoglobin 12.6 g/dL Hematocrit 37.0 % Mean Corpuscular Volume 87.3 fL Mean Corpuscular Hemoglobin 29.7 pg Mean Corpuscular Hemoglobin Concent 34.1 g/dl RDW Standard Deviation 41.2 fL RDW Coefficient of Variation 12.9 % Platelet Count 199 K/uL Mean Platelet Volume 9.7 fL Sodium Level 142 mmol/L Potassium Level 3.8 mmol/L Chloride Level 107 mmol/L Carbon Dioxide Level 29 mmol/L Anion Gap 6.0 mmol/L Blood Urea Nitrogen 5 mg/dl Creatinine 0.67 mg/dl Est Creatinine Clear Calc Drug Dose 95.4 ml/min Estimated GFR () 134.8 Estimated GFR (Non- 116.3 BUN/Creatinine Ratio 7.0 Random Glucose 89 mg/dl Calcium Level 8.0 mg/dl Total Bilirubin 0.4 mg/dl Aspartate Amino Transf (AST/SGOT) 9 U/L Alanine Aminotransferase (ALT/SGPT) 16 U/L Alkaline Phosphatase 82 U/L Total Protein 6.0 gm/dl Albumin 3.1 gm/dl Globulin 2.9 gm/dl Albumin/Globulin Ratio 1.1 Date/Time Source Procedure Growth Status 09/26/16 12:45 Stool WBC Smear Pending Received 09/26/16 12:45 Stool C.difficile Toxin B Gene (PCR) Pending Received 09/26/16 12:45 Stool Shiga Toxin Test Pending Received 09/26/16 12:45 Stool Stool Culture Pending Received Assessment & Plan ABDOMINAL PAIN Severe abdominal pain over 2 days as outlined in the HPI. Etiology uncertain. History of nephrolithiasis, but no ureteral calculi noted on CT. No evidence of cholecystitis, appendicitis, diverticulitis, bowel obstruction. Presence of microscopic hematuria suggests that she may have passed a calculus. However, symptoms seem to be predominantly GI. Possible viral gastroenteritis. Stool studies sent for C. difficile and routine enteric pathogens. C. difficile negative. Routine stool culture pending. Managed with bowel rest, IV fluids, analgesics, antiemetics with improvement. Diet advanced and tolerated. No further evaluation treatment necessary at this time. Will need reassessment if symptoms recur or worsen. VTE PROPHYLAXIS Very low risk for VTE. Ambulate. DISPOSITION Discharge to home. Internal Medicine follow-up with Dr. Marj Fiore. . Procedures: US gallbladder IV fluids IV medications . Current Inpatient Medications: Current Inpatient Medications Medications (Trade) Dose Ordered Sig/Franchesca Route Start Time Stop Time Status Last Admin Dose Admin Ondansetron HCl (Zofran Inj) 4 mg Q6H PRN IV 09/25/16 13:45 10/25/16 13:44 Polyethylene (Miralax Powder Packet) 17 gm BID PRN PO 09/25/16 14:30 10/25/16 14:29 Morphine Sulfate (MoRPHine SULFATE INJ) 2 mg Q2H PRN IV 09/25/16 14:30 10/09/16 14:29 Acetaminophen (Tylenol Tab) 650 mg Q4H PRN PO 09/25/16 17:45 10/25/16 17:44 Miscellaneous (Iv Fluids Completed) 1 ea PRN PRN N/A 09/25/16 19:15 09/25/17 19:14
[2016-09-26] MEDS ORDERED: MRLP17X PO (14:02)
--- NOTE | 2016-09-26 14:11 | Discharge Instructions ---
Discharge Instructions Date of Service Sep 26, 2016. Admission Reason for Admission: abdominal pain . Discharge Discharge Diagnosis / Problem: abdominal pain Discharge Goals Goal(s): Decrease discomfort, Improve disease control Activity Recommendations Activity Limitations: resume your previous activity . Instructions / Follow-Up Instructions / Follow-Up APPOINTMENTS: INTERNAL MEDICINE 09/29/2016 11:20 AM Marj Fiore MD INSTRUCTIONS: CT scan on 09/24 showed stones in both kidneys, but no stones in ureters. Gallbladder looked OK on CT scan and ultrasound. No sign of appendicitis. You may have a gastroenteritis (stomach virus) which should get better without antibiotics. Drink plenty of fluids. Diet should be low in dairy products and fiber for a few days until diarrhea is better. After that, eat well balanced diet with plenty of fiber. Yogurt with active culture is usually good for the digestive system. May use MiraLax once or twice a day if you are constipated. Seek medical attention if you have: * temperature above 101 * abdominal pain, nausea, vomiting * diarrhea, dark stools or bloody stools * burning when you urinate or blood in your stools * any unanswered questions or concerns Call 911 if symptoms are severe. Call if you have any questions or problems. My cell # is [phone]. You can also reach a [facility] hospitalist on duty at [facility] 24 hours a day by calling [phone]. Please take good care of yourself. Eusebio Rahman . Current Hospital Diet Patient's current hospital diet: Regular Diet Discharge Diet Recommended Diet: Regular Diet (avoid dairy products and large amounts of fiber for a few days until diarrhea is better) Pending Studies Studies pending at discharge: yes List of pending studies: stool tests Medical Emergencies . Who to Call and When: Medical Emergencies: If at any time you feel your situation is an emergency, please call 911 immediately. . Non-Emergent Contact Non-Emergency issues call your: Primary Care Provider, Hospital Doctor . . "Provider Documentation" section prepared by Eusebio Rahman. . VTE Core Measure Inpt VTE Proph given/why not?: Treatment not indicated
[2016-09-26 14:34] VITALS: BP 112/73; PULSE 73; TEMP 36.2; O2SAT 100
--- NOTE | 2016-09-26 20:20 | Discharge Summary ---
Discharge Summary Date of Service Sep 26, 2016. Discharge Summary Admission Date: Sep 25, 2016 at 13:44 Discharge Date: Sep 26, 2016 Discharge Disposition: Home Principal Diagnosis: abdominal pain diarrhea . Secondary Diagnoses/Problems: Chronic Medical Problems: (1) Nephrolithiasis Status: Chronic Surgical Problems: (1) Status post delivery Status: Chronic (2) Status post ureteral stenting + lithotripsy Status: Chronic . Procedures: US gallbladder IV fluids IV medications . Medication Reconciliation New Medications: Polyethylene (Miralax) 17 Gm Pow 17 GM PO BID PRN for Constipation, #1 BTL no prescription necessary Admission Information HPI (per Admitting provider): 30-year-old female followed by Dr. Marj Fiore. History of nephrolithiasis, status post lithotripsy stents. Otherwise, she enjoys good health. Early yesterday morning she developed abdominal pain. Pain described as lower abdominal pain that radiated to her back. The pain was intense and constant. She noted some nausea and loose stools. No dysuria or hematuria. Experienced chills, no fever. Came to the ED for evaluation. UA showed microscopic hematuria. CT of abdomen and pelvis showed bilateral physis, but no ureteral stones and no apparent acute intra-abdominal pathology. Patient received IV fluids, hydromorphone, and ondansetron with improvement of her symptoms. She was discharged to home. She returned to the ED this afternoon around 1:30 because of persistent abdominal pain, more diffuse than yesterday. Persistent nausea, no vomiting. Still experiencing some fecal urgency and loose stools. No melena or hematochezia prior to ED visit, but she had mild rectal bleeding after enema was administered. No dysuria or gross hematuria. Received IV fluids, ondansetron, morphine with some relief, but still uncomfortable and unable to return home. Youngest child is 11 months old and still breast-feeding. Urine test in ED negative. . Physical Exam (per Admitting): General Appearance: + mild distress Head: normocephalic, atraumatic Eyes: normal inspection, PERRL, EOMI, sclerae normal ENT: normal ENT inspection, hearing grossly normal Neck: supple, no adenopathy, thyroid normal, no JVD Respiratory/Chest: lungs clear, normal breath sounds, no respiratory distress, no accessory muscle use Cardiovascular: regular rate, rhythm, no edema, no murmur Abdomen/GI: + pertinent finding (slightly distended, hyperactive bowel sounds, soft, diffuse moderate tenderness without rebound, no palpable masses or organomegaly) Extremities/Musculoskelatal: normal inspection, no calf tenderness Neurologic/Psych: oriented x 3 Skin: normal color, warm/dry, no rash Lymphatic: no adenopathy (cervical) Hospital Course ABDOMINAL PAIN Severe abdominal pain over 2 days as outlined in the HPI. Etiology uncertain. History of nephrolithiasis, but no ureteral calculi noted on CT. No evidence of cholecystitis, appendicitis, diverticulitis, bowel obstruction. Presence of microscopic hematuria suggests that she may have passed a calculus. However, symptoms seem to be predominantly GI. Possible viral gastroenteritis. Stool studies sent for C. difficile and routine enteric pathogens. C. difficile negative. Routine stool culture pending. Managed with bowel rest, IV fluids, analgesics, antiemetics with improvement. Diet advanced and tolerated. No further evaluation treatment necessary at this time. Will need reassessment if symptoms recur or worsen. VTE PROPHYLAXIS Very low risk for VTE. Ambulate. DISPOSITION Discharge to home. Internal Medicine follow-up with Dr. Marj Fiore. . Discharge Instructions Date of Service Sep 26, 2016. Admission Reason for Admission: abdominal pain . Discharge Discharge Diagnosis / Problem: abdominal pain Discharge Goals Goal(s): Decrease discomfort, Improve disease control Activity Recommendations Activity Limitations: resume your previous activity . Instructions / Follow-Up Instructions / Follow-Up APPOINTMENTS: INTERNAL MEDICINE 09/29/2016 11:20 AM Marj Fiore MD INSTRUCTIONS: CT scan on 09/24 showed stones in both kidneys, but no stones in ureters. Gallbladder looked OK on CT scan and ultrasound. No sign of appendicitis. You may have a gastroenteritis (stomach virus) which should get better without antibiotics. Drink plenty of fluids. Diet should be low in dairy products and fiber for a few days until diarrhea is better. After that, eat well balanced diet with plenty of fiber. Yogurt with active culture is usually good for the digestive system. May use MiraLax once or twice a day if you are constipated. Seek medical attention if you have: * temperature above 101 * abdominal pain, nausea, vomiting * diarrhea, dark stools or bloody stools * burning when you urinate or blood in your stools * any unanswered questions or concerns Call 911 if symptoms are severe. Call if you have any questions or problems. My cell # is [phone]. You can also reach a [facility] hospitalist on duty at [facility] 24 hours a day by calling [phone]. Please take good care of yourself. Eusebio Rahman . Current Hospital Diet Patient's current hospital diet: Regular Diet Discharge Diet Recommended Diet: Regular Diet (avoid dairy products and large amounts of fiber for a few days until diarrhea is better) Pending Studies Studies pending at discharge: yes List of pending studies: stool tests Medical Emergencies . Who to Call and When: Medical Emergencies: If at any time you feel your situation is an emergency, please call 911 immediately. . Non-Emergent Contact Non-Emergency issues call your: Primary Care Provider, Hospital Doctor . . "Provider Documentation" section prepared by Eusebio Rahman. . VTE Core Measure Inpt VTE Proph given/why not?: Treatment not indicated .
[2016-10-06 16:10] LABS: CRYPTOSPORIDIUM AG TC 37213 NOT DETECTED (NOT DETECTED); ISOSPORA+CYCLOSPORA NOT DETECTED (NOT DETECTED); O&P GIARDIA AG NOT DETECTED (NOT DETECTED); O&P SOURCE OTHER-STOOL
== END 2016-09-26 15:09 | disposition home or self-care (01) ==
LOC: C.EDB 08:21 → C.MS4W 13:44 → ENRESERV 14:43
PROVIDERS: ADMIT Hospitalist; ATTEND Hospitalist
DX: R10.9 Unspecified abdominal pain (principal); R11.0 Nausea

== ENCOUNTER 2022-01-03 15:27 | Inpatient (IN) ==
[2022-01-03] MEDS ORDERED: CEFEPIME 2,000 MG/20 ML VIAL IV STA (15:53)
[2022-01-03] MEDS ORDERED: ONDANSETRON INJ 2 MG/ML 2 ML VIAL IV STA (15:53)
[2022-01-03] MEDS ORDERED: ACETAMINOPHEN 1,000 MG/100 ML VIAL IV STA (15:53)
[2022-01-03] MEDS ORDERED: SODIUM CHLORIDE 0.9% 1000ML 1,000 ML IV STA (15:53)
[2022-01-03 16:02] LABS: Basophils # (auto) 0.03 K/uL (0-0.2); Basophils % (auto) 0.2 %; Eosinophils # (auto) 0.01 K/uL (0-0.50); Eosinophils % (auto) 0.1 %; Hematocrit (blood only) 39.7 % (34.1-44.9); Hemoglobin 14.3 g/dl (12.0-16.0); Immature Granulocytes # (auto) 0.03 K/uL (0.00-0.02); Immature Granulocytes % (auto) 0.2 %; Lymphocytes # (auto) 0.85 K/uL (1.2-3.4); Lymphocytes % (auto) 6.9 %; Mean Corpuscular Hemoglobin 30.2 pg (25.0-34.0); Mean Corpuscular Volume 83.9 fL (80.0-100.0); Mean Platelet Volume 9.6 fL (9.4-12.3); Monocytes % (auto) 8.9 %; Neutrophils # (auto) 10.33 K/uL (1.4-6.5); Neutrophils % (auto) 83.7 %; Platelet Count 249 K/uL (130-400); RDW Coefficient of Variation 12.5 % (11.5-14.5); RDW Standard Deviation 38.2 fL (36.4-46.3); Red Blood Count 4.73 M/uL (3.93-5.22); White Blood Count 12.35 K/ul (4.8-10.8)
--- NOTE | 2022-01-03 16:11 | Emergency Department Note ---
Impression & Plan Pyelonephritis, Tachycardia, Bilateral flank pain, Failure of outpatient treatment ED Provider Note NAME: CHUY ORTEZ AGE: 36 SEX: F : 1985 ARRIVES VIA: Walk-In INFORMANT: [Patient] ED PROVIDER(S): [Sylvain Hogan MD] CHIEF COMPLAINT: Flank pain, fever HISTORY OF PRESENT ILLNESS: The patient is a 36-year-old female whose had left flank pain for about a week. She has a history of renal stones and thought she was passing a stone. She has noticed some urinary burning and urgency as well. The patient went yesterday and had a urinalysis done, she was diagnosed with a UTI and placed on Bactrim. Today, she has bilateral flank pain that is severe. She is nauseated. She has a fever. She has had tingling in her hands and she is breathing rapidly. She presented tearful and quite upset in triage. REVIEW OF SYSTEMS: See HPI for pertinent positives and negatives. A total of ten systems were reviewed and were otherwise negative. PMHx/PSHx: See Below SOCIAL HISTORY: See Below. PHYSICAL EXAM: GENERAL: Patient is in moderate distress from pain. Tearful. HEENT: No acute trauma, normocephalic atraumatic, mucous membranes moist, no nasal congestion, no scleral icterus. NECK: No stridor, no adenopathy, no meningismus, trachea is midline. LUNGS: Clear to auscultation bilaterally, no wheeze, no rhonchi, breath sounds equal. Hyperventilating. HEART: Subtle systolic murmur, tachycardic, regular rhythm. ABDOMEN: Soft, mildly diffusely tender, no peritonitis EXTREMITIES: No cyanosis or edema, full range of motion of all the joints withou t pain or difficulty, no signs for acute trauma. NEUROLOGIC: Oriented x 3, no acute motor or sensory deficits, no focal weakness. SKIN: No rash, no jaundice, no diaphoresis. Back: Bilateral flank discomfort to percussion. DIFFERENTIAL DIAGNOSIS: Renal colic, UTI, bacteremia, sepsis, appendicitis, diverticulitis, mesenteric ischemia, aortic pathology, infections, inflammatory bowel disease, PUD, biliary pathology, as well as other pathologies. EMERGENCY DEPARTMENT COURSE/PROCEDURES: ECG: Indication was tachycardia and potential sepsis. The ECG shows a normal sinus rhythm with a rate of 98. There is some diffuse nonspecific ST change. There is no ST elevation, no PVCs. The QTc is 449 Continuous Cardiac Monitoring: An order was placed for continuous cardiac monitoring. The monitor shows a rate of 121 with sinus tachycardia. MEDICAL DECISION MAKING: There is a mild leukocytosis, this would be consistent with infection. There is a normal hemoglobin and platelet count. Renal panel testing shows a slightly low sodium and potassium, no renal failure. Lactic acid level was not elevated making severe sepsis less likely. Magnesium was slightly low at 1.6. No concerning liver enzyme elevation. Procalcitonin level was normal. testing was negative. Urinalysis does show findings of infection. COVID test returned negative. Abdominal and pelvis CT shows evidence for bilateral pyelonephritis, no obstructing ureteral stone noted. The patient was quite uncomfortable, she was tearful, she was tachycardic and febrile. Patient was given IV saline, 1 L. She is given IV morphine and IV Zofran, she received IV magnesium, IV Toradol, IV cefepime and IV Tylenol. She does feel improved. Given her findings, given her presentation, given the failure of outpatient t reatment, I do think a hospital stay for symptom control and IV antibiotic therapy is warranted. I did speak with the patient and case management. The on-call hospitalist was consulted. Past Med/Surg History Medical History Nephrolithiasis UTI (urinary tract infection) Social History Smoking Status: Never smoker Preferred Language: Serbian Feels Safe at Home: Yes Allergies Allergies Allergy/AdvReac Type Severity Reaction Status Date / Time No Known Allergies Allergy Unverified 01/03/22 15:54 Home Meds Home Medications Medication Instructions Recorded Confirmed sulfamethoxazole 800 1 tab PO BID 01/03/22 01/03/22 mg-trimethoprim 160 mg tablet Results & Data (ED) Vital Signs Vital Signs - 24 hr 01/03/22 15:33 01/03/22 16:43 01/03/22 16:49 Temperature 38.1 C H 37.5 C Temperature Source Oral Oral Pulse Rate 131 H 94 H Respiratory Rate 20 16 Respiratory Effort / Characteristics Non-Labored Spontaneous Respiratory Depth Normal Respiratory Pattern Regular Blood Pressure 112/72 107/66 Blood Pressure Mean 85 79 Blood Pressure Position Sitting Pulse Oximetry 99 99 Oxygen Delivery Method Room Air Sepsis Recent Fever Within 48 Hours No Sepsis New/Unexplained Change in Mental Status No Sepsis Action Taken by Nursing No Action Required 01/03/22 17:00 01/03/22 17:31 Temperature Temperature Source Pulse Rate 95 H 92 H Respiratory Rate 16 14 Respiratory Effort / Characteristics Respiratory Depth Respiratory Pattern Blood Pressure 98/65 L 106/62 Blood Pressure Mean 76 76 Blood Pressure Position Pulse Oximetry 100 99 Oxygen Delivery Method Sepsis Recent Fever Within 48 Hours Sepsis New/Unexplained Change in Mental Status Sepsis Action Taken by Prison Medications Current Medication List: was personally reviewed by me Laboratory Data Attestation: I reviewed the patient's lab results. Result diagrams: 01/03/22 15:53 01/03/22 15:53 Lab Results 01/03/22 01/03/22 01/03/22 Range/Units 15:53 15:53 15:53 WBC 12.35 H (4.8-10.8) K/ul RBC 4.73 (3.93-5.22) M/uL Hgb 14.3 (12.0-16.0) g/dl Hct 39.7 (34.1-44.9) % MCV 83.9 (80.0-100.0) fL MCH 30.2 (25.0-34.0) pg MCHC 36.0 (32.0-36.0) g/dL RDW Std Deviation 38.2 (36.4-46.3) fL RDW Coeff of [place] 12.5 (11.5-14.5) % Plt Count 249 (130-400) K/uL MPV 9.6 (9.4-12.3) fL Immature Gran % (Auto) 0.2 % Neut % (Auto) 83.7 % Lymph % (Auto) 6.9 % [place] % (Auto) 8.9 % Eos % (Auto) 0.1 % Baso % (Auto) 0.2 % Neut # (Auto) 10.33 H (1.4-6.5) K/uL Lymph # (Auto) 0.85 L (1.2-3.4) K/uL [place] # (Auto) 1.10 H (0.24-0.82) K/uL Eos # (Auto) 0.01 (0-0.50) K/uL Baso # (Auto) 0.03 (0-0.2) K/uL Immature Gran # (Auto) 0.03 H (0.00-0.02) K/uL Sodium 134 L (136-145) mmol/L Potassium 3.4 L (3.5-5.1) mmol/L Chloride 101 (98-107) mmol/L Carbon Dioxide 20 L (21-32) mmol/L Anion Gap 13 H (3-11) BUN 10 (6-23) mg/dl Creatinine 0.76 (0.6-1.2) mg/dl Est Cr Clr Drug Dosing Not Reportable Est GFR ( Amer) 115.3 ml/min Est GFR (Non-Af Amer) 99.5 ml/min BUN/Creatinine Ratio 13.2 (10-20) Glucose 90 (70-99(Fasting)) mg/dl Lactate (0.4-2.0) mmol/L Calcium 9.6 (8.5-10.1) mg/dl Magnesium 1.6 L (1.7-2.4) mg/dl Total Bilirubin 0.8 (0.2-1.0) mg/dl Direct Bilirubin 0.2 (0-0.2) mg/dl AST 12 L (13-39) U/L ALT 10 (7-52) U/L Alkaline Phosphatase 69 (34-104) U/L Troponin I High Sens 2.8 (0-14) pg/ml Total Protein 7.4 (6.0-8.3) gm/dl Albumin 4.4 (3.4-5.0) gm/dl Procalcitonin 0.16 (0-0.5) ng/ml HCG, Qual (Negative) Urine Color Urine Appearance (Clear) Urine pH (4.5-7.5) Ur Specific [place] (1.000-1.030) Urine Protein (Negative) Urine Glucose (UA) (Negative) Urine Ketones (Negative) Urine Blood (Negative) Urine Nitrite (Negative) Urine Bilirubin (Negative) Urine Urobilinogen (Negative) Ur Leukocyte Esterase (Negative) Urine WBC (Auto) (0-5) /hpf Urine RBC (Auto) (0-4) /hpf U Hyaline Cast (Auto) (0-5) /lpf U Epithel Cells (Auto) (0-5) /lpf Urine Bacteria (Auto) (Negative) SARS-CoV-2, RNA, NAAT (NEGATIVE) 01/03/22 01/03/22 01/03/22 Range/Units 15:53 16:05 16:08 WBC (4.8-10.8) K/ul RBC (3.93-5.22) M/uL Hgb (12.0-16.0) g/dl Hct (34.1-44.9) % MCV (80.0-100.0) fL MCH (25.0-34.0) pg MCHC (32.0-36.0) g/dL RDW Std Deviation (36.4-46.3) fL RDW Coeff of [place] (11.5-14.5) % Plt Count (130-400) K/uL MPV (9.4-12.3) fL Immature Gran % (Auto) % Neut % (Auto) % Lymph % (Auto) % [place] % (Auto) % Eos % (Auto) % Baso % (Auto) % Neut # (Auto) (1.4-6.5) K/uL Lymph # (Auto) (1.2-3.4) K/uL [place] # (Auto) (0.24-0.82) K/uL Eos # (Auto) (0-0.50) K/uL Baso # (Auto) (0-0.2) K/uL Immature Gran # (Auto) (0.00-0.02) K/uL Sodium (136-145) mmol/L Potassium (3.5-5.1) mmol/L Chloride (98-107) mmol/L Carbon Dioxide (21-32) mmol/L Anion Gap (3-11) BUN (6-23) mg/dl Creatinine (0.6-1.2) mg/dl Est Cr Clr Drug Dosing Est GFR ( Amer) ml/min Est GFR (Non-Af Amer) ml/min BUN/Creatinine Ratio (10-20) Glucose (70-99(Fasting)) mg/dl Lactate 1.5 (0.4-2.0) mmol/L Calcium (8.5-10.1) mg/dl Magnesium (1.7-2.4) mg/dl Total Bilirubin (0.2-1.0) mg/dl Direct Bilirubin (0-0.2) mg/dl AST (13-39) U/L ALT (7-52) U/L Alkaline Phosphatase (34-104) U/L Troponin I High Sens (0-14) pg/ml Total Protein (6.0-8.3) gm/dl Albumin (3.4-5.0) gm/dl Procalcitonin (0-0.5) ng/ml HCG, Qual Negative (Negative) Urine Color Yellow Urine Appearance Clear (Clear) Urine pH 8.5 H (4.5-7.5) Ur Specific [place] 1.004 (1.000-1.030) Urine Protein Negative (Negative) Urine Glucose (UA) Negative (Negative) Urine Ketones 1+ H (Negative) Urine Blood 1+ H (Negative) Urine Nitrite Negative (Negative) Urine Bilirubin Negative (Negative) Urine Urobilinogen Negative (Negative) Ur Leukocyte Esterase 3+ H (Negative) Urine WBC (Auto) >30 H (0-5) /hpf Urine RBC (Auto) 0-4 (0-4) /hpf U Hyaline Cast (Auto) 1-5 (0-5) /lpf U Epithel Cells (Auto) 5-10 H (0-5) /lpf Urine Bacteria (Auto) Negative (Negative) SARS-CoV-2, RNA, NAAT (NEGATIVE) 01/03/22 Range/Units 16:55 WBC (4.8-10.8) K/ul RBC (3.93-5.22) M/uL Hgb (12.0-16.0) g/dl Hct (34.1-44.9) % MCV (80.0-100.0) fL MCH (25.0-34.0) pg MCHC (32.0-36.0) g/dL RDW Std Deviation (36.4-46.3) fL RDW Coeff of [place] (11.5-14.5) % Plt Count (130-400) K/uL MPV (9.4-12.3) fL Immature Gran % (Auto) % Neut % (Auto) % Lymph % (Auto) % [place] % (Auto) % Eos % (Auto) % Baso % (Auto) % Neut # (Auto) (1.4-6.5) K/uL Lymph # (Auto) (1.2-3.4) K/uL [place] # (Auto) (0.24-0.82) K/uL Eos # (Auto) (0-0.50) K/uL Baso # (Auto) (0-0.2) K/uL Immature Gran # (Auto) (0.00-0.02) K/uL Sodium (136-145) mmol/L Potassium (3.5-5.1) mmol/L Chloride (98-107) mmol/L Carbon Dioxide (21-32) mmol/L Anion Gap (3-11) BUN (6-23) mg/dl Creatinine (0.6-1.2) mg/dl Est Cr Clr Drug Dosing Est GFR ( Amer) ml/min Est GFR (Non-Af Amer) ml/min BUN/Creatinine Ratio (10-20) Glucose (70-99(Fasting)) mg/dl Lactate (0.4-2.0) mmol/L Calcium (8.5-10.1) mg/dl Magnesium (1.7-2.4) mg/dl Total Bilirubin (0.2-1.0) mg/dl Direct Bilirubin (0-0.2) mg/dl AST (13-39) U/L ALT (7-52) U/L Alkaline Phosphatase (34-104) U/L Troponin I High Sens (0-14) pg/ml Total Protein (6.0-8.3) gm/dl Albumin (3.4-5.0) gm/dl Procalcitonin (0-0.5) ng/ml HCG, Qual (Negative) Urine Color Urine Appearance (Clear) Urine pH (4.5-7.5) Ur Specific [place] (1.000-1.030) Urine Protein (Negative) Urine Glucose (UA) (Negative) Urine Ketones (Negative) Urine Blood (Negative) Urine Nitrite (Negative) Urine Bilirubin (Negative) Urine Urobilinogen (Negative) Ur Leukocyte Esterase (Negative) Urine WBC (Auto) (0-5) /hpf Urine RBC (Auto) (0-4) /hpf U Hyaline Cast (Auto) (0-5) /lpf U Epithel Cells (Auto) (0-5) /lpf Urine Bacteria (Auto) (Negative) SARS-CoV-2, RNA, NAAT NEGATIVE (NEGATIVE) Administered Medications Discontinued Medications Sodium Chloride (Nss 1000ml) 1,000 mls @ 999 mls/hr IV .Q1H1M STA Stop: 01/03/22 16:53 Last Infusion: 01/03/22 17:23 Dose: 0 mls/hr Documented By: Admin: 01/03/22 16:10 Dose: 999 mls/hr Documented By: CRISTOPHER Cefepime HCl (Maxipime) 2,000 mg in 20 mls @ 5 mls/min IV NOW STA; Protocol Stop: 01/03/22 15:56 Last Admin: 01/03/22 16:43 Dose: 5 mls/min Documented By: CRISTOPHER Acetaminophen (Ofirmev) 1,000 mg in 100 mls @ 400 mls/hr IV NOW STA Stop: 01/03/22 16:07 Last Infusion: 01/03/22 16:31 Dose: 0 mls/hr Documented By: Admin: 01/03/22 16:10 Dose: 400 mls/hr Documented By: CRISTOPHER Magnesium Sulfate/Dextrose (Magnesium Sulfate / D5w) 1 gm in 100 mls @ 100 ml s/hr IV NOW STA Stop: 01/03/22 17:26 Last Infusion: 01/03/22 18:05 Dose: 0 mls/hr Documented By: Admin: 01/03/22 16:38 Dose: 100 mls/hr Documented By: CRISTOPHER Ketorolac Tromethamine (Ketorolac Tromethamine 15 Mg/Ml Vial) 15 mg IV NOW STA Stop: 01/03/22 16:25 Last Admin: 01/03/22 16:39 Dose: 15 mg Documented By: CRISTOPHER Morphine Sulfate (Morphine Sulfate 4 Mg/Ml 1 Ml Carp\Vial) 4 mg IV NOW STA Stop: 01/03/22 17:00 Last Admin: 01/03/22 17:27 Dose: 4 mg Documented By: SARBJIT Ondansetron HCl (Ondansetron Inj 2 Mg/Ml 2 Ml Vial) 4 mg IV NOW STA Stop: 01/03/22 15:54 Last Admin: 01/03/22 16:11 Dose: 4 mg Documented By: CRISTOPHER Imaging Data Radiologist's Impression: Abdomen/Pelvis CT 01/03/22 15:[address] WITHOUT CONTRAST CT DOSE: 408.42 mGycm HISTORY: Acute left-sided flank pain with fever left flank pain, fever TECHNIQUE: Multiaxial CT images of the abdomen and pelvis were performed without contrast. A dose lowering technique was utilized adhering to the principles of ALARA. COMPARISON STUDY: CT abdomen and pelvis 09/24/2016 FINDINGS: No acute process of the imaged lower chest. No pneumatosis or pneumoperitoneum. The unenhanced spleen, pancreas, gallbladder, adrenal glands and liver appear unremarkable. There proximally 3 nonobstructing calculi of the right kidney measuring up to 3 mm. Punctate left renal calculus. There is mild urothelial thickening of the left renal pelvis and left ureter. No ureteral calculi or hydronephrosis. Duplic ated renal collecting systems and ureters on the left. Mild urinary bladder wall thickening. Uterus is unremarkable. Trace free pelvic fluid. Aorta and IVC are unremarkable. No lymphadenopathy. No bowel obstruction or bowel wall thickening. Mild colonic fecal retention. Nor mal appendix. Unremarkable soft tissues. No acute fracture. IMPRESSION: 1. No bowel obstruction or bowel wall thickening. Normal appendix. 2. Bilateral nephrolithiasis without ureteral calculi or hydronephrosis. 3. Mild urinary bladder wall thickening is noted in conjunction with urothelial thickening of the left renal pelvis and ureter. Findings are suggestive of cystitis with an ascending infection. Correlate with urinalysis. 4. Trace free pelvic fluid is likely physiologic. ACT 112: Negative or not required by law. The above report was generated using voice recognition software. It may contain grammatical, syntax or spelling errors. Electronically signed by: French Singh M.D. 01/03/2022 4:49 PM Discharge Plan Visit Data Chief Complaint: Flank Pain Stated Complaint: EXTREME FLANK PAIN ED Provider: Sylvain Hogan Discharge Problem: Pyelonephritis, Tachycardia, Bilateral flank pain, Failure of outpatient treatment Patient Disposition: Admitted As Inpatient Condition: Fair Forms Stand Alone Forms: [employer] Prescriptions Prescriptions: No Action sulfamethoxazole-trimethoprim 800-160 mg tablet 1 tab PO BID Rx Instructions: ordered 01/03/22 take for 3 days Referrals Referrals: Yojana Rehman MD [Primary Care Provider] -
[2022-01-03 16:22] LABS: Alanine Aminotransferase 10 U/L (7-52); Albumin Level 4.4 gm/dl (3.4-5.0); Alkaline Phosphatase 69 U/L (34-104); Anion Gap 13 (3-11); Aspartate Aminotransferase 12 U/L (13-39); BUN Creatinine Ratio 13.2 (10-20); Bilirubin Direct 0.2 mg/dl (0-0.2); Bilirubin,Total 0.8 mg/dl (0.2-1.0); Blood Urea Nitrogen 10 mg/dl (6-23); Calcium 9.6 mg/dl (8.5-10.1); Carbon Dioxide 20 mmol/L (21-32); Chloride 101 mmol/L (98-107); Est GFR (African American) 115.3 ml/min; Est GFR (Non-African American) 99.5 ml/min; Glucose 90 mg/dl (70-99(Fasting)); Magnesium 1.6 mg/dl (1.7-2.4); Potassium 3.4 mmol/L (3.5-5.1); Sodium 134 mmol/L (136-145); Total Protein 7.4 gm/dl (6.0-8.3)
[2022-01-03] MEDS ORDERED: KETOROLAC TROMETHAMINE 15 MG/ML VIAL IV STA (16:24)
[2022-01-03 16:27] LABS: Troponin I High Sensitivity 2.8 pg/ml (0-14)
[2022-01-03] MEDS ORDERED: MAGNESIUM SULFATE / D5W 1 GM/100 ML BAG IV STA (16:27)
[2022-01-03 16:47] LABS: Pregnancy Test, Serum Negative (Negative)
--- NOTE | 2022-01-03 16:51 | CT Scan Report ---
ABDOMEN AND PELVIS CT WITHOUT CONTRAST CT DOSE: 408.42 mGycm HISTORY: Acute left-sided flank pain with fever left flank pain, fever TECHNIQUE: Multiaxial CT images of the abdomen and pelvis were performed without contrast. A dose lo wering technique was utilized adhering to the principles of ALARA. COMPARISON STUDY: CT abdomen and pelvis 09/24/2016 FINDINGS: No acute process of the imaged lower chest. No pneumatosis or pneumoperitoneum. The unenhanced spleen , pancreas, gallbladder, adrenal glands and liver appear unremarkable. There proximally 3 nonobstructing calculi of the right kidney measuring up to 3 mm. Punctate left vale al calculus. There is mild urothelial thickening of the left renal pelvis and left ureter. No uretera l calculi or hydronephrosis. Duplicated renal collecting systems and ureters on the left. Mild urinar y bladder wall thickening. Uterus is unremarkable. Trace free pelvic fluid. Aorta and IVC are unremar kable. No lymphadenopathy. No bowel obstruction or bowel wall thickening. Mild colonic fecal retention. Normal appendix. Unremar kable soft tissues. No acute fracture. IMPRESSION: 1. No bowel obstruction or bowel wall thickening. Normal appendix. 2. Bilateral nephrolithiasis without ureteral calculi or hydronephrosis. 3. Mild urinary bladder wall thickening is noted in conjunction with urothelial thickening of the lef t renal pelvis and ureter. Findings are suggestive of cystitis with an ascending infection. Correlate with urinalysis. 4. Trace free pelvic fluid is likely physiologic. ACT 112: Negative or not required by law. The above report was generated using voice recognition software. It may contain grammatical, syntax o r spelling errors. Electronically signed by: French Singh M.D. 01/03/2022 4:49 PM
[2022-01-03 16:57] LABS: Appearance Urine Clear (Clear); Bacteria Urine Automated Negative (Negative); Bilirubin Urine Negative (Negative); Blood Urine 1+ (Negative); Color Urine Yellow; Glucose Urine UA Negative (Negative); Ketones Urine 1+ (Negative); Leukocyte Esterase Urine 3+ (Negative); Nitrite Urine Negative (Negative); Protein Urine Negative (Negative); RBC Urine Automated 0-4 /hpf (0-4); Specific Gravity Urine 1.004 (1.000-1.030); Urobilinogen Urine Negative (Negative); WBC Urine Automated >30 /hpf (0-5); pH Urine 8.5 (4.5-7.5)
[2022-01-03] MEDS ORDERED: MoRPHine SULFATE 4 MG/ML 1 ML CARP\\VIAL IV STA (16:59)
--- NOTE | 2022-01-03 18:40 | History & Physical Report ---
Date of Service January 03, 2022 Assessment & Plan (1) Sepsis: Plan: Present (2) UTI (urinary tract infection): (3) Pyelonephritis: Plan: Present on admission with bilateral flank pain, dysuria associated with fever/chills Meet sepsis criteria on admission with tachycardia, febrile and leukocytosis (WBC 12K) Outpatient urine cx on 01/02 positive for gram negative bacilli She was started on Bactrim ( only took 1 tab) CT abd/pelvis showed mild urinary bladder wall thickening is noted in conjunction with urothelial thickening of the left renal pelvis and ureter. Blood cx and urine cx collected in the ER Received IV cefepime in the ER, will continue for now Continue IVF and pain control Will follow outpatient urine sensitivity Monitor WBC Continue monitor closely Renal calculi Complaint with b/l flanlk pain that seems mostly related to pyelonephritis CT abd/pelvis showed 3 nonobstructing calculi of the right kidney measuring up to 3 mm. Punctate left renal calculus. No Hydronephrosis noted Will consult urology Mild elevated anion gap Mostly related to poor intake/dehydration Continue IVF Will monitor closely Electrolytes imbalance Potassium 3.4 and mag 1.6 Electrolytes replaced Continue monitor DVT px SCD/ encourage pt to ambulate Code status full code History of Present Illness Chief Complaint: B/L flank pain Primary Care Provider: Yojana Rehman MD 36 yo female with PMH of kidney stone presented to the ER for b/l flank pain. Pt said that about 1 week ago she started to have dysuria. 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 She said that she thought that was a kidney stone. She said by Wednesday she developed b/l flank pain. She said her flank pain and dysuria worsening that she went to the office to give a urine sample. UA was positive for UTI and she was given Bactrim that she only took 1 dose. I checked her outpatient urine cx that grew gram negative bacili. Pt said that today she felt worst and developed fever an chills and headache. She said that she did not eat much today. She said prior coming to the ER she felt dizzy and nauseated. Currently patient said that she feels a little better. Denies any chest pain, palpitation, SOB and vomiting. Allergies Allergy/AdvReac Type Severity Reaction Status Date / Time No Known Allergies Allergy Unverified 01/03/22 15:54 Home Medications Medication Instructions Recorded Confirmed Type sulfamethoxazole 800 1 tab PO BID 01/03/22 01/03/22 History mg-trimethoprim 160 mg tablet Past Med/Surg History Medical History Nephrolithiasis UTI (urinary tract infection) Social History Smoking Status: Never smoker Preferred Language: Nauruan Feels Safe at Home: Yes Review of Systems Review of Systems: All systems reviewed & are unremarkable except as noted in HPI & below Physical Exam Physical Exam: General- No acute distress Head- atraumatic Eyes- PERRL, EOMI, ENT- oropharynx clear Neck- supple, no JVD Lungs- clear to auscultation Heart- no murmur, +tachycardia Abdomen/pelvis - normal bowel sounds, +mid abdominal tenderness, +B/L flank pain Extremities- no calf tenderness Neuro- alert, oriented x 3; PERRL, EOMI; no facial palsy; no dysarthria Skin- warm & dry Results & Data Results & Data ([facility]) Vital Signs (Past 12 Hours) Vital Signs Temp Pulse Resp BP Pulse Ox O2 Del Method 01/03/22 17:31 92 H 14 106/62 99 01/03/22 17:00 95 H 16 98/65 L 100 01/03/22 16:49 94 H 16 107/66 99 01/03/22 16:43 37.5 C 01/03/22 15:33 38.1 C H 131 H 20 112/72 99 Room Air
[2022-01-03] MEDS ORDERED: ONDANSETRON INJ 2 MG/ML 2 ML VIAL IV PRN (21:06)
[2022-01-03] MEDS ORDERED: MoRPHine SULFATE 2 MG/ML CARP IV PRN (21:06)
[2022-01-03] MEDS ORDERED: KETOROLAC TROMETHAMINE 15 MG/ML VIAL IV PRN (21:06)
[2022-01-03] MEDS ORDERED: POTASSIUM CHLORIDE CRTAB 20 MEQ TABCR PO STA (21:06)
[2022-01-03] MEDS: SODIUM CHLORIDE 0.9% 1000ML 1,000 ML IV SCH (21:14)
[2022-01-04] MEDS: CEFEPIME 2,000 MG in SYRINGE 0 ML IV SCH ×2 (06:04→17:41)
[2022-01-04] MEDS: SODIUM CHLORIDE 0.9% 1000ML 1,000 ML IV SCH ×2 (06:05→15:42)
[2022-01-04 07:02] LABS: Hematocrit (blood only) 35.9 % (34.1-44.9); Hemoglobin 12.4 g/dl (12.0-16.0); Mean Corpuscular Hemoglobin 30.2 pg (25.0-34.0); Mean Corpuscular Hgb Conc 34.5 g/dL (32.0-36.0); Mean Corpuscular Volume 87.6 fL (80.0-100.0); Mean Platelet Volume 9.8 fL (9.4-12.3); Platelet Count 200 K/uL (130-400); RDW Coefficient of Variation 13.2 % (11.5-14.5); RDW Standard Deviation 42.4 fL (36.4-46.3); White Blood Count 10.74 K/ul (4.8-10.8)
[2022-01-04] MEDS ORDERED: KETOROLAC TROMETHAMINE 15 MG/ML VIAL IV PRN (07:59)
[2022-01-04] MEDS ORDERED: MoRPHine SULFATE 2 MG/ML CARP IV PRN (07:59)
[2022-01-04] MEDS ORDERED: ACETAMINOPHEN 500 MG TAB PO ONE (08:02)
[2022-01-04 09:06] LABS: BUN Creatinine Ratio 14.1 (10-20); Calcium 8.3 mg/dl (8.5-10.1); Creatinine Clr Calc Pharmacy 77.3 ml/min; Est GFR (African American) 111.8 ml/min; Est GFR (Non-African American) 96.4 ml/min; Magnesium 2.2 mg/dl (1.7-2.4); Phosphorus 1.7 mg/dl (2.5-4.9); Potassium 4.2 mmol/L (3.5-5.1)
--- NOTE | 2022-01-04 09:11 | Urology Consultation ---
Date of Consultation January 04, 2022 Assessment & Plan (1) Nephrolithiasis: Her stones do not appear to be obstructing on imaging, therefore I do not think she requires any intervention such as stent placement at this time. The stones are small enough that she has a good chance of passing them spontaneously if they should move. We can establish care as an outpatient to discuss further stone management. (2) Pyelonephritis: Overall clinical picture is suspicious for pyelonephritis. She is currently covered with broad-spectrum antibiotics (cefepime). I recommend awaiting urine and blood cultures and narrowing antibiotic coverage as indicated. No role for urologic intervention at this time. (3) Bilateral flank pain: Plan -No need for urologic intervention at this time -Continue antibiotics, narrow coverage as culture data becomes available -Urology will sign off for now and establish outpatient follow-up. Please call with any questions or concerns. History of Present Illness Reason for Consultation: Pyelonephritis, history of stones Attending Physician: Chelsea Chairez, History of Present Illness This is a 36-year-old female with history of nephrolithiasis who presented to the hospital on 01/03/2022. She notes that over the past week she has had some burning and dysuria. As the week went on, she started having pain in bilateral flanks as well as fevers and chills. She was seen by providers in an outside facility where urinalysis was performed and indicated an infection. She was started on Bactrim but had worsening symptoms, prompting her to come to the emergency department. Work-up in the emergency department was notable for mild leukocytosis (WBC 12.35), normal creatinine (0.76). Urinalysis demonstrated 1+ blood, 1+ ketones, >30 WBC/hpf, negative bacteria, however this was after a dose of Bactrim. A CT scan was performed on 01/03/2022, which I independently reviewed. Her kidneys appear to be in normal position bilaterally. She has 3 small (1 to 2 mm) stones in the right kidney. There are no ureteral stones. There is some thickening of the left renal pelvis consistent with ascending UTI. There is no hydronephrosis bilaterally and no evidence of obstruction. Her bladder appears grossly normal. This morning she reports that she is still having intermittent fevers. The flank pain is somewhat improved. She has passed stones on her own recently. She thinks she might of had a stone prevention work-up several years ago. Family history is noncontributory. Allergies Allergy/AdvReac Type Severity Reaction Status Date / Time No Known Allergies Allergy Unverified 01/03/22 15:54 Home Medications Medication Instructions Recorded Confirmed Type sulfamethoxazole 800 1 tab PO BID 01/03/22 01/03/22 History mg-trimethoprim 160 mg tablet Patient History Medical History Nephrolithiasis UTI (urinary tract infection) Social History Smoking Status: Never smoker Second Hand Exposure: No; Do You Dip or Chew Tobacco: No; Tobacco Cessation Education Requested by Patient: No Hx Alcohol Use: No Hx Substance Use: No Preferred Language: Polish Communication Ability: Effective Property Site Manager Required: No Beliefs That Will Affect Care: None Current Living Situation: Spouse Feels Safe at Home: Yes Safety Concerns: Feels Safe At This Time Assistive Devices: None Review of Systems Review of Systems: 14 point review of systems negative except for otherwise indicated. Physical Exam Physical Exam: Resting in bed, towel across forehead Constitutional: well developed and well nourished; no acute distress Eyes: + anicteric sclerae; pupils not irregular Respiratory: normal respiratory effort; no respiratory distress, does not use accessory muscles and no cough Cardiovascular: well perfused Gastrointestinal (Abdomen): Inspection/Auscultation: abdomen normal to inspection; abdomen not distended Musculoskeletal: Extremities: extremities normal to inspection Skin: normal turgor; no rashes and no lesions Neurologic: moves all extremities and awake Psychiatric: Orientation: alert and oriented x 3 Results & Data ([facility]) Vital Signs (Past 12 Hours) Vital Signs Temp Pulse Resp BP Pulse Ox O2 Del Method 01/04/22 08:58 36.8 C 01/04/22 07:40 38.3 C H 101 H 18 93/56 L 96 Room Air 01/03/22 21:33 Room Air PG Care Time/CCT Total # of Minutes Spent Total Time Spent with Patient: Total time spent is greater than 50% in coordination of care (as documented) at patient's floor/unit and/or counseling patient: Coding Level of Care Code 96468 Inpt Consult Level 4 Diagnoses Nephrolithiasis N20.0 Pyelonephritis N12 Bilateral flank pain R10.9
[2022-01-04] MEDS: POT PHOSPHATE MONOBASIC W/ SOD TAB PO SCH ×3 (12:28→21:11)
[2022-01-04] MEDS ORDERED: ACETAMINOPHEN 325 MG TAB PO PRN (14:00)
--- NOTE | 2022-01-04 14:47 | Hospitalist Progress Note ---
Date of Service January 04, 2022 Assessment & Plan (1) Sepsis: Plan: Appears resuscitated. Slight tachycardia and hypotension this morning we will continue IV fluids for now. Continue broad-spectrum antibiotics. (2) Pyelonephritis: Plan: Continue broad-spectrum antibiotics pending results of urine and blood cultures and continued improvement clinically. (3) Hypophosphatemia: Plan: Or replacement given. We will recheck level in the a.m. she is eating reliably. (4) Hypomagnesemia: Plan: Replacement given yesterday and level was 2.2 today. (5) DVT prophylaxis: Plan: Lovenox started Full code Disposition-to home when improved clinically. [facility]z [facility] and [facility]ticipated Discharge Date Admission Date: January 03, 2022 Subjective 36-year-old female with 1 week of UTI symptoms presented with sepsis secondary to pyelonephritis She denies any significant flank pain today When she was febrile this morning with some chills She is tolerating p.o. She otherwise has no chest pain, trouble breathing and feels much better today than yesterday Review of Systems Review of Systems: All systems reviewed negative except as indicated above. Physical Exam Physical Exam: CONSTITUTIONAL: WNWD, vitals as above, generally well- appearing, NAD EYES: normal conjunctivae, no scleral icterus ENT: external ear and nose normal, MMM NECK: trachea midline RESPIRATORY: clear to auscultation bilaterally, no crackles, rales or wheezes, normal respiratory effort CARDIOVASCULAR: regular rate and rhythm, S1 and 2 heard without murmurs, gallops or rubs, no JVD, no peripheral edema CHEST: inspection of chest was normal GASTROINTESTINAL: soft, nontender, ND, no guarding MUSCULOSKELETAL: strength 5/5 throughout, head is normocephalic and atraumatic SKIN: warm and dry NEUROLOGIC: CN 2-12 grossly intact, no sensory deficit, normal cognition, norm al speech, no tremor PSYCHIATRIC: alert cooperative and oriented to person, place and time. Results & Data Results & Data ([facility]) Vital Signs (Past 12 Hours) Vital Signs Temp Pulse Resp BP Pulse Ox O2 Del Method 01/04/22 08:58 36.8 C 01/04/22 07:40 38.3 C H 101 H 18 93/56 L 96 Room Air Laboratory Results Short CBC 01/03/22 01/04/22 Range/Units 15:53 06:10 WBC 12.35 H 10.74 (4.8-10.8) K/ul Hgb 14.3 12.4 (12.0-16.0) g/dl Hct 39.7 35.9 (34.1-44.9) % Plt Count 249 200 (130-400) K/uL BMP 01/03/22 01/04/22 15:53 06:10 Sodium 134 L 136 Potassium 3.4 L 4.2 D Chloride 101 108 H Carbon Dioxide 20 L 24 BUN 10 11 Creatinine 0.76 0.78 Glucose 90 87 Calcium 9.6 8.3 L Liver Function 01/03/22 Range/Units 15:53 Total Bilirubin 0.8 (0.2-1.0) mg/dl Direct Bilirubin 0.2 (0-0.2) mg/dl AST 12 L (13-39) U/L ALT 10 (7-52) U/L Alkaline Phosphatase 69 (34-104) U/L Albumin 4.4 (3.4-5.0) gm/dl Urine 01/03/22 Range/Units 16:05 Urine Color Yellow Urine Appearance Clear (Clear) Urine pH 8.5 H (4.5-7.5) Ur Specific [place] 1.004 (1.000-1.030) Urine Protein Negative (Negative) Urine Glucose (UA) Negative (Negative) Medications Administered Current Inpatient Medications Acetaminophen (Acetaminophen 325 Mg Tab) 650 mg PO Q6H PRN PRN Reason: fever/mild pain (1-6) Stop: 02/03/22 13:59 Cefepime HCl 2,000 mg/ Syringe 20 mls @ 5 mls/min IV Q12H JEFFERY; Protocol Stop: 01/14/22 05:59 Last Admin: 01/04/22 06:04 Dose: 5 mls/min Sodium Chloride (Nss 1000ml) 1,000 mls @ 100 mls/hr IV .Q10H JEFFERY Stop: 02/02/22 21:05 Last Admin: 01/04/22 06:05 Dose: 100 mls/hr Ketorolac Tromethamine (Ketorolac Tromethamine 15 Mg/Ml Vial) 15 mg IV Q6H PRN PRN Reason: severe pain (7-10) Stop: 01/08/22 21:05 Morphine Sulfate (Morphine Sulfate 2 Mg/Ml Carp) 2 mg IV Q4H PRN PRN Reason: Severe Pain (7-10) Stop: 01/17/22 21:05 Ondansetron HCl (Ondansetron Inj 2 Mg/Ml 2 Ml Vial) 4 mg IV Q6H PRN PRN Reason: Nausea And Vomiting Stop: 02/02/22 21:05 Potassium Phosphate (Pot Phosphate Monobasic W/ Sod Tab) 2 tab PO QID [facility] Stop: 01/06/22 12:59 Last Admin: 01/04/22 12:28 Dose: 2 tab
[2022-01-04] MEDS ORDERED: ENOXAPARIN INJ 40 MG/0.4 ML SYR SQ SCH (16:00)
--- NOTE | 2022-01-04 19:17 | Electrocardiogram Report ---
Test Reason : Blood Pressure : / mmHG Vent. Rate : 098 BPM Atrial Rate : 098 BPM P-R Int : 118 ms QRS Dur : 082 ms QT Int : 352 ms P-R-T Axes : 065 080 024 degrees QTc Int : 449 ms Normal sinus rhythm Normal ECG No previous ECGs available Confirmed by Mateus Alcantara ([id number]) on 01/04/2022 7:17:26 PM Referred By: REFERRED SELF Confirmed By:Maetus Alcantara
[2022-01-05] MEDS: SODIUM CHLORIDE 0.9% 1000ML 1,000 ML IV SCH (01:26)
[2022-01-05] MEDS: CEFEPIME 2,000 MG in SYRINGE 0 ML IV SCH (05:15)
[2022-01-05 07:20] LABS: Hematocrit (blood only) 33.1 % (34.1-44.9); Hemoglobin 11.4 g/dl (12.0-16.0); Mean Corpuscular Hemoglobin 30.3 pg (25.0-34.0); Mean Corpuscular Hgb Conc 34.4 g/dL (32.0-36.0); Platelet Count 177 K/uL (130-400); RDW Coefficient of Variation 13.2 % (11.5-14.5); RDW Standard Deviation 42.5 fL (36.4-46.3); Red Blood Count 3.76 M/uL (3.93-5.22); White Blood Count 8.66 K/ul (4.8-10.8)
[2022-01-05 08:02] LABS: BUN Creatinine Ratio 10.2 (10-20); Calcium 7.9 mg/dl (8.5-10.1); Creatinine Clr Calc Pharmacy 102.3 ml/min; Est GFR (African American) 134.8 ml/min; Est GFR (Non-African American) 116.3 ml/min; Magnesium 1.9 mg/dl (1.7-2.4); Phosphorus 2.1 mg/dl (2.5-4.9); Potassium 3.8 mmol/L (3.5-5.1)
[2022-01-05] MEDS: POT PHOSPHATE MONOBASIC W/ SOD TAB PO SCH ×2 (08:24→13:02)
--- NOTE | 2022-01-05 12:18 | Discharge Summary ---
Discharge Summary Date of Service January 05, 2022 Notes For Next Care Provider Acute pyelonephritis Medication Changes From Visit Cipro 500mg PO BID x 7 days Admission HPI Per Admitting Provider 36 yo female with PMH of kidney stone presented to the ER for b/l flank pain. Pt said that about 1 week ago she started to have dysuria. 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 She said that she thought that was a kidney stone. She said by Wednesday she developed b/l flank pain. She said her flank pain and dysuria worsening that she went to the office to give a urine sample. UA was positive for UTI and she was given Bactrim that she only took 1 dose. I checked her outpatient urine cx that grew gram negative bacili. Pt said that today she felt worst and developed fever an chills and headache. She said that she did not eat much today. She said prior coming to the ER she felt dizzy and nauseated. Currently patient said that she feels a little better. Denies any chest pain, palpitation, SOB and vomiting. Admission Exam Per Admitting Provider Physical Exam: General- No acute distress Head- atraumatic Eyes- PERRL, EOMI, ENT- oropharynx clear Neck- supple, no JVD Lungs- clear to auscultation Heart- no murmur, +tachycardia Abdomen/pelvis - normal bowel sounds, +mid abdominal tenderness, +B/L flank pain Extremities- no calf tenderness Neuro- alert, oriented x 3; PERRL, EOMI; no facial palsy; no dysarthria Skin- warm & dry Principal Dx & Hospital Course #1 = Principal Diagnosis (1) Sepsis: (2) Pyelonephritis: (3) Hypophosphatemia: (4) Hypomagnesemia: Plan 36-year-old female with ongoing urinary tract symptoms for a week presented with sepsis secondary to acute pyelonephritis. She was previously on Bactrim but only took of 1-3 tabs prior to arrival. CT of the abdomen pelvis revealed mild urinary bladder wall thickening with urothelial thickening of the left renal pelvis and ureter. She received IV cefepime in the ER which was continued. Urine culture inpatient was negative however her outpatient culture from 01/02 is growing gram-negative bacilli. It is awaiting speciation and sensitivities. Blood cultures were drawn and negative. She was resuscitated with IV fluids and did well clinically. At time of discharge she was afebrile for over 24 hours. She did notably have renal calculi that were not causing issues. The bilateral flank pain that was present during her stay was likely related to pyelonephritis. Electrolytes were replaced including potassium and magnesium. She was discharged in stable condition with close follow-up with primary care recommended. Ciprofloxacin 500 twice daily was given for an additional 7 days. Discharge Exam CONSTITUTIONAL: WNWD, vitals as above, generally well-appearing, NAD EYES: normal conjunctivae, no scleral icterus ENT: external ear and nose normal, MMM NECK: trachea midline RESPIRATORY: clear to auscultation bilaterally, no crackles, rales or wheezes, normal respiratory effort CARDIOVASCULAR: regular rate and rhythm, S1 and 2 heard without murmurs, gallops or rubs, no JVD, no peripheral edema CHEST: inspection of chest was normal GASTROINTESTINAL: soft, nontender, ND, no guarding MUSCULOSKELETAL: strength 5/5 throughout, head is normocephalic and atraumatic SKIN: warm and dry NEUROLOGIC: CN 2-12 grossly intact, no sensory deficit, normal cognition, normal speech, no tremor PSYCHIATRIC: alert cooperative and oriented to person, place and time. Updated Medication List Medication Instructions Recorded Confirmed Type sulfamethoxazole 800 1 tab PO BID 01/03/22 01/03/22 History mg-trimethoprim 160 mg tablet ciprofloxacin HCl 500 mg tablet 500 mg PO BID #14 tabs 01/05/22 Rx (Cipro) Hospital Stay Data Consultations 01/03/22 17:22 ED Decision to Admit Stat 01/04/22 07:00 Consult Urology Routine Diagnostic Imagining Performed 01/03/22 15:53 CT abd pelvis wo con Stat Pending Results Patient Have Any Pending Studies at Discharge: Yes Discharge Instructions Given to Patient (Per Discharging Provider) Please take all medications as instructed on discharge as below. You have been scheduled with a follow-up with your primary care doctor to ensure you are still feeling well after going home and tolerating the current medications without difficulty. Also the urine culture (outpatient) from 01/02 is growing bacteria, but the speciation and sensitivity is not yet back. Your primary care physician can ensure the medication you are taking will be effective after reviewing this with you. Please ensure you know your finalized blood culture result which is currently negative at time of discharge. As we discussed there was nothing bacterial that grew in your urine culture here, which does not mean you did not have an infection. It is likely that any antibiotic you took prior to arrival gave us a false negative. It was a pleasure taking care of you! Please call if you have any questions or problems. You can reach a [facility] Hospitalist on duty at [facility] 24 hours a day by calling [phone]. Take care of yourself. Chelsea Chairez, DO [facility] Total Time Total Time Spent Total Time Spent (In Minutes): 60
== END 2022-01-05 13:42 | disposition home or self-care (01) | DRG 872 ==
LOC: ED 15:27 → SUATTDRO 17:54 → 3N 17:54